=== PATIENT | male | born 1940 | race Caucasian/White ===

== ENCOUNTER 2020-01-09 11:39 | Day surgery (SDC) | payer MEDICARE, OTHER ==
[2020-01-08 08:54] VITALS: BMI 25.8
[~2020-01-09 11:39] MED LIST: ALBUTEROL NEB (CONC) 2.5 MG/0.5 ML INHALATION ONE; ATROPINE SULFATE 0.4 MG/ML 1 ML VIAL IM ONE; LACTATED RINGERS 1,000 ML IV SCH; LIDOCAINE 2% (PF) 20 MG/ML 5 ML VIAL INHALATION ONE; LIDOCAINE VISCOUS 300 MG/15 ML CUP MUCOUS MEM ONE; SODIUM CHLORIDE 0.9% 1,000 ML IV SCH
[2020-01-09 12:15] VITALS: RESP 16; TEMP 97.4
[2020-01-09] MEDS ORDERED: ATROPINE SULFATE 0.4 MG/ML 1 ML VIAL ONE (12:16)
[2020-01-09 12:46] LABS: Glucose,Whole Blood 115 mg/dL (75-99)
[2020-01-09] MEDS ORDERED: LIDOCAINE 2% INJ 20 MG/ML INTRATRACH ONE (13:12)
[2020-01-09] MEDS ORDERED: LIDOCAINE 1% INJ 10MG/ML (20 ML MDV) ONE (13:14)
[2020-01-09] MEDS ORDERED: PROPOFOL 10 MG/ML 20 ML VIAL IV ONE (13:14)
[2020-01-09 14:06] VITALS: BP 131/59; PULSE 89
[2020-01-09 18:50] LABS: Appearance,BF Cloudy; Color,BF Pink
[2020-01-09 18:51] LABS: Nucleated Cells, Body Fluid 955 /uL; RBC, Body Fluid 7825 /uL
[2020-01-09 19:56] LABS: Mononuclear WBC,Body Fluid 2 %; Polynuclear WBC,Body Fluid 98 %
--- NOTE | 2020-01-10 04:53 | PCN ---
PROCEDURE NOTE PROCEDURE: Bronchoscopy, airway examination, therapeutic lavage, BAL right middle lobe. PREOPERATIVE DIAGNOSIS: Prior history of lung cancer, retained secretions. POSTOPERATIVE DIAGNOSIS: Prior history of lung cancer, retrained secretions. [employer]ANT provided general anesthesia. The patient's procedure was done in room #1. There was informed consent and universal timeout. The patient did give consent. OPERATORS: Dr. Conti, Dr. Al and Angella Schneider. DESCRIPTION OF PROCEDURE: After the patient was adequately sedated and being fully monitored, the bronchoscope was inserted through the right nostril. It passed through the right nasopharynx into the oropharynx. The hypopharynx was identified and topicalized. The hypopharyngeal structures, including the anterior commissure, true cords, false cords, arytenoids, piriform sinuses, right and left vallecula, epiglottis, all appeared normal. After topicalization, the bronchoscope was pushed through the glottic opening into the trachea. The trachea appeared relatively normal. There were thick secretions noted in the distal trachea. The tracheal pepito was sharp. The left lung was evaluated first. The left upper lobe and its 2 segments, the lingula and its 2 segments and the left lower lobe and its 4 segments were all found to be normal. There were thick secretions noted throughout. The secretions were suctioned with some difficulty. Saline was used to suction those secretions. There was no dominant mass or tumor. On the right side, there was previous right upper lobectomy. The right upper lobe was gone. The right middle lobe had 2 segments and was normal. The right lower lobe had 5 segments and was also normal. There was nothing that looked like cancer. There were thick secretions noted on that side as well. They were suctioned with some difficulty. The bronchoscope was then wedged into the right middle lobe. The BAL took place, 40 mL was recovered. The patient tolerated the procedure well. There was no immediate complication. Of note, throughout the airway, the bronchial mucosa was erythematous and hyperemic. There was no dominant mass or tumor. There was some vascular engorgement. There was some mucosal friability. The patient tolerated the procedure well. The bronchoscope was withdrawn and the patient will be recovered. The specimens will be sent to the laboratory for analysis. MMODL / IJN: [id number] /
== END 2020-01-09 14:30 | disposition home or self-care (01) ==
LOC: ORWHC2ENDO 11:39
PROVIDERS: ATTEND Internal Medicine Critical Care Medicine
DX: R09.3 Abnormal sputum (principal); R89.7 Abnormal histological findings in specimens from other organs, systems and tissues; J43.9 Emphysema, unspecified; Z85.118 Personal history of other malignant neoplasm of bronchus and lung; I48.19 Other persistent atrial fibrillation; I48.91 Unspecified atrial fibrillation; E78.5 Hyperlipidemia, unspecified; K21.9 Gastro-esophageal reflux disease without esophagitis; L98.499 Non-pressure chronic ulcer of skin of other sites with unspecified severity; Z90.2 Acquired absence of lung [part of]; Z79.899 Other long term (current) drug therapy; Z79.51 Long term (current) use of inhaled steroids; Z79.01 Long term (current) use of anticoagulants; Z79.52 Long term (current) use of systemic steroids; Z86.73 Personal history of transient ischemic attack (TIA), and cerebral infarction without residual deficits; Z87.891 Personal history of nicotine dependence; Z98.890 Other specified postprocedural states; Z90.89 Acquired absence of other organs; Z92.21 Personal history of antineoplastic chemotherapy; Z92.3 Personal history of irradiation; Z97.2 Presence of dental prosthetic device (complete) (partial)
CPT/HCPCS: 88108; 88305; 89050; 87252; 87070; 87205; 87075; 87116; 87102; 87206; 31624; J2001 ×2; J0461; J2704; 87077; 87186

== ENCOUNTER → 2020-02-20 | Day surgery (SDC) | payer MEDICARE, OTHER ==
[2020-02-18 09:23] VITALS: BMI 25.8
[~2020-02-20] MED LIST changes: +LIDOCAINE 1% INJ 10MG/ML (20 ML MDV) ONE; +MIDAZOLAM 2 MG/2 ML VIAL ONE; +PROPOFOL 10 MG/ML 20 ML VIAL IV ONE
[2020-02-20 12:14] VITALS: TEMP 97.1
[2020-02-20 13:40] VITALS: RESP 18
[2020-02-20 14:10] VITALS: BP 135/79; PULSE 77
[2020-02-20 20:56] LABS: Appearance,BF Hazy; Nucleated Cells, Body Fluid 225 /uL; RBC, Body Fluid 15 /uL
[2020-02-20 21:02] LABS: Mononuclear WBC,Body Fluid 17 %; Polynuclear WBC,Body Fluid 83 %; Total Cells Counted,Body Fluid 100
--- NOTE | 2020-02-21 05:37 | PCN ---
PROCEDURE NOTE PROCEDURE: Bronchoscopy, airway examination, therapeutic lavage, BAL. PREOPERATIVE DIAGNOSIS: Retained secretions and bronchitis. POSTOPERATIVE DIAGNOSIS: Retained secretions and bronchitis. OPERATORS: Dr. Conti and Angella Schneider. DESCRIPTION OF PROCEDURE: The patient's procedure took place in room #2. There was informed consent and universal timeout. The operators were Dr. Conti and Angella Schneider. The nurse translator was Taylor Siegel. She provided general anesthesia. After the patient was adequately sedated and being fully monitored, the bronchoscope was inserted through the right nostril. It passed through the right nasopharynx into the oropharynx. The hypopharynx was identified and topicalized. The hypopharyngeal structures were normal including anterior commissure, true cords, false cords, arytenoids, piriform sinuses, right and left vallecula. After topicalization, the bronchoscope was pushed through the glottic opening into the trachea. The trachea appeared normal. There were secretions noted in the distal trachea. They were thick and purulent looking. The tracheal pepito was sharp. On the left side, the left upper lobe proper and its 2 segments, the lingula and its 2 segments and left lower lobe and its 4 segments all appeared relatively normal. The mucosa was very erythematous and hyperemic. There were thick secretions noted throughout. They were difficult to suction. Saline was used to aid in the suction of these secretions. There was no dominant mass or tumor. There was some mucosal friability. On the right side, the right upper lobe was missing from previous lobectomy. The right middle lobe and its 2 segments in the right lower lobe and 5 segments all were normal save for the diffuse bronchial erythema, hyperemia and mucosal friability. Again, there were thick secretions noted throughout. There was no dominant mass. The anatomy of the middle lobe and the right lower lobe was distorted because of the previous right upper lobectomy and everything rotated counterclockwise 90 degrees. Again, no dominant mass or tumor. Secretions were suctioned. The bronchoscope was wedged into the right middle lobe. The BAL took place. The patient tolerated the procedure well. There was no immediate complication. Thirty mL of purulent material was removed from the right middle lobe and we sent to the laboratory for analysis. MMODL / IJN: [id number] /
== END | disposition home or self-care (01) ==
LOC: ORWHC2ENDO 11:42
PROVIDERS: ATTEND Internal Medicine Critical Care Medicine
DX: J40 Bronchitis, not specified as acute or chronic (principal); I48.91 Unspecified atrial fibrillation; Z86.73 Personal history of transient ischemic attack (TIA), and cerebral infarction without residual deficits; E78.5 Hyperlipidemia, unspecified; Z85.118 Personal history of other malignant neoplasm of bronchus and lung; Z87.891 Personal history of nicotine dependence; Z98.890 Other specified postprocedural states; Z90.2 Acquired absence of lung [part of]; Z92.21 Personal history of antineoplastic chemotherapy; Z79.01 Long term (current) use of anticoagulants; Z79.51 Long term (current) use of inhaled steroids; Z79.52 Long term (current) use of systemic steroids; Z79.899 Other long term (current) drug therapy
CPT/HCPCS: 87798 ×3; 87496; 87498; 87529; 88108; 88305; 89050; 87252; 87502; 87634; 87070; 87205; 87116; 87102; 87077; 87186; 87206; 31624; J2250; J0461; J2001; J2704

== ENCOUNTER 2020-03-28 10:42 | Inpatient (IN) | payer MEDICARE, OTHER ==
--- NOTE | 2020-03-28 11:58 | ED ---
SOB HPI - General Chief Complaint: Shortness of Breath Stated Complaint: SOB Time Seen by Provider: 03/28/20 10:42 Source: patient, RN/MD, EMS, RN notes reviewed, old records reviewed Mode of arrival: EMS Limitations: no limitations - History of Present Illness Initial Comments: This is a 72-year-old male history of COPD history of lung cancer who was seen at [facility] and evaluated for shortness of breath. He was found have a pneumonia in addition that he also was found have melenic stools heme positive with evidence of GI bleed. He was transferred here for further care. He states she's actually feeling somewhat better than he did earlier. He was given community acquired pneumonia medications. He was apparently negative. Hemoglobin was 8.1 down from 10.8 on February 25. MD Complaint: shortness of breath, cough - Related Data Home Medications Medication Instructions Recorded Confirmed ALPRAZolam [Xanax] 0.25 mg PO HS PRN 01/08/20 02/20/20 Albuterol Nebulized [Ventolin 2.5 mg INHALATION Q4H 01/08/20 02/20/20 Nebulized] Apixaban [Eliquis] 2.5 mg PO BID 01/08/20 02/20/20 Atorvastatin [Lipitor] 40 mg PO HS 01/08/20 02/20/20 Cyanocobalamin (Vitamin B-12) 2,500 mcg PO DAILY 01/08/20 02/20/20 [Vitamin B-12] Ferrous Sulfate [Feosol] 325 mg PO DAILY 01/08/20 02/20/20 Fluticasone/Vilanterol [Breo 1 inhalation INHALATION DAILY 01/08/20 02/20/20 Ellipta 200-25 Mcg INH] Ipratropium Nebulized [Atrovent 0.5 mg INHALATION Q6HR 01/08/20 02/20/20 Nebulized 0.2 MG/ML] Pantoprazole Sodium 40 mg PO DAILY 01/08/20 02/20/20 Sotalol [Betapace] 120 mg PO BID 01/08/20 02/20/20 Venlafaxine HCl [Effexor XR] 150 mg PO DAILY 01/08/20 02/20/20 Vit D3 With Aloe 1 cap PO DAILY 01/08/20 02/20/20 guaiFENesin-DM 600/30MG [Mucinex 1 each PO Q12HR 01/08/20 02/20/20 Dm] predniSONE 10 mg PO DAILY 01/08/20 02/20/20 Sulfamethoxazole/Trimethoprim 1 each PO Q12H 02/18/20 02/20/20 [Sulfamethoxazole-Tmp Ds Tablet] Allergies Allergy/AdvReac Type Severity Reaction Status Date / Time No Known Allergies Allergy Verified 02/18/20 09:23 Review of Systems ROS Statement: Those systems with pertinent positive or pertinent negative responses have been documented in the HPI. ROS Other: All systems not noted in ROS Statement are negative. Past Medical History Past Medical History: Atrial Fibrillation, Cancer, COPD, CVA/TIA, GERD/Reflux, Hyperlipidemia Additional Past Medical History / Comment(s): ANEMIA. 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 O2 2L/NC PRN AT HOME NEEDED. CURRENT LUNG INFECTION ON ANTIBIOTICS History of Any Multi-Drug Resistant Organisms: None Reported Additional Past Surgical History / Comment(s): RT UPPER LOBE LUNG REMOVED. PILONIDAL CYSTECTOMY. BILATERAL CATARACTS REMOVED WITH LENS IMPLANT. EGD. COLONOSOCPY. BRONCHOCOSCOPY Past Anesthesia/Blood Transfusion Reactions: No Reported Reaction Past Psychological History: Anxiety Smoking Status: Former smoker Past Alcohol Use History: None Reported Past Drug Use History: None Reported - Past Family History Father Family Medical History: Myocardial Infarction ([place]) Additional Family Medical History / Comment(s): OF HEART ATTACK AT AGE 42. Mother Family Medical History: Cancer Sister(s) Family Medical History: Cancer General Exam - General Exam Comments Initial Comments: This is a well-developed well-nourished awake alert oriented times 3 male Limitations: no limitations General appearance: alert Head exam: Present: atraumatic, normocephalic, normal inspection Eye exam: Present: normal appearance, PERRL, EOMI. Absent: scleral icterus, conjunctival injection, periorbital swelling ENT exam: Present: normal exam, mucous membranes moist Neck exam: Present: normal inspection. Absent: tenderness, meningismus, lymphadenopathy Respiratory exam: Present: rhonchi, decreased breath sounds. Absent: respiratory distress, wheezes, rales, stridor Cardiovascular Exam: Present: regular rate, normal rhythm, normal heart sounds. Absent: systolic murmur, diastolic murmur, rubs, gallop, clicks GI/Abdominal exam: Present: soft, normal bowel sounds. Absent: distended, tenderness, guarding, rebound, rigid Extremities exam: Present: normal inspection, full ROM, normal capillary refill. Absent: tenderness, pedal edema, joint swelling, calf tenderness Back exam: Present: normal inspection Neurological exam: Present: alert, oriented X3, CN II-XII intact Psychiatric exam: Present: normal affect, normal mood Skin exam: Present: warm, dry, intact, normal color. Absent: rash Course Vital Signs 03/28/20 10:46 Temperature 98.0 F Pulse Rate 103 H Respiratory 20 Rate Blood Pressure 153/84 O2 Sat by Pulse 99 Oximetry Medical Decision Making - Medical Decision Making I did review the materials presented from the sending facility. Which includes x-ray report showing evidence of left lower lobe atelectasis versus infiltrate. I did discuss case with Dr. Diana samuel. Patient will be admitted with GI consult. Also pulmonary consult Disposition Clinical Impression: Left lower lobe pneumonia, COPD exacerbation, Upper GI bleed, Anemia Disposition: ADMITTED IP TO THIS HOSP Condition: Fair Referrals: Reymundo Toledo MD [Primary Care Provider] - 1-2 days
[2020-03-28] MEDS ORDERED: PNEUMONIA PROTOCOL UTILIZED 1 EACH MISC PO PRN (12:15)
[2020-03-28] MEDS ORDERED: AZITHROMYCIN 500 MG in SODIUM CHLORIDE 0.9% 250 ML IVPB STA (12:15)
[2020-03-28] MEDS ORDERED: SODIUM CHLORIDE 0.9% 1,000 ML IV STA (12:23)
[2020-03-28 13:36] LABS: Anisocytosis Slight; HCT 31.3 % (39.0-53.0); HGB 8.9 gm/dL (13.0-17.5); Hypochromasia Marked; MCH 23.9 pg (25.0-35.0); MCHC 28.3 g/dL (31.0-37.0); MCV 84.4 fL (80.0-100.0); Mean Platelet Volume 7.4; Platelet Count 277 k/uL (150-450); RBC 3.71 m/uL (4.30-5.90); RDW 17.2 % (11.5-15.5); WBC 12.3 k/uL (3.8-10.6)
[2020-03-28] MEDS: SODIUM CHLORIDE 0.9% 1,000 ML IV SCH ×2 (14:48→23:53)
[2020-03-28] MEDS ORDERED: IPRATROPIUM-ALBUTEROL 3 ML NEB INHALATION STA (15:23)
[2020-03-28] MEDS ORDERED: ALPRAZolam 0.25 MG TAB PO PRN (20:51)
[2020-03-28] MEDS ORDERED: HYDROcodone/APAP 5-325MG 1 EACH TAB PO PRN (20:51)
[2020-03-28] MEDS ORDERED: HYDROmorphone 0.5 MG/0.5 ML SYRINGE IVP PRN (20:51)
[2020-03-28] MEDS: BUDESONIDE 0.5 MG/2 ML NEBU INHALATION SCH (20:52)
[2020-03-28] MEDS: IPRATROPIUM-ALBUTEROL 3 ML NEB INHALATION SCH (20:52)
--- NOTE | 2020-03-28 20:59 | XR ---
EXAMINATION TYPE: XR chest 1V portable DATE OF EXAM: 03/28/2020 COMPARISON: NONE HISTORY: Chest pain TECHNIQUE: FINDINGS: There are patchy infiltrates and atelectasis at the lung bases. There is no gross heart himanshu lure. There is some bulkiness of the right pulmonary hilum. IMPRESSION: Infiltrates and atelectasis at the lung bases. There is slight prominence of the right pu lmonary hilum that could relate to infiltrate. Comparison with old exam recommended. No heart failure seen.
[2020-03-28] MEDS ORDERED: PANTOPRAZOLE 40 MG/10 ML VIAL IVP SCH (21:00)
[2020-03-28 21:16] LABS: Anisocytosis Slight; Basophils % (A) 0 %; Eosinophils % (A) 0 %; HCT 27.3 % (39.0-53.0); HGB 7.8 gm/dL (13.0-17.5); Hypochromasia Marked; Lymphocytes # (A) 0.4 k/uL (1.0-4.8); Lymphocytes % (A) 4 %; MCH 23.9 pg (25.0-35.0); MCHC 28.5 g/dL (31.0-37.0); MCV 83.6 fL (80.0-100.0); Mean Platelet Volume 7.1; Monocytes # (A) 0.4 k/uL (0-1.0); Monocytes % (A) 4 %; Neutrophils # (A) 9.7 k/uL (1.3-7.7); Neutrophils % (A) 92 %; Platelet Count 207 k/uL (150-450); RBC 3.27 m/uL (4.30-5.90); RDW 17.1 % (11.5-15.5); WBC 10.6 k/uL (3.8-10.6)
--- NOTE | 2020-03-28 21:25 | HP ---
HISTORY AND PHYSICAL DATE OF SERVICE: 03/28/2020 CHIEF COMPLAINT: Cough, pneumonia and as well as GI bleed. HISTORY OF PRESENT ILLNESS: This 80-year-old gentleman with a past medical history of COPD, CVA, TIA, GERD, hyperlipidemia, history of lung cancer, squamous cell and small cell carcinoma, being followed by Dr. Toledo in the outpatient setting, was having difficulty in cough and clearing the sputum for several weeks according to him. Because of the worsening, the patient went to [facility]. Right lower lobe pneumonia was suspected. Patient referred to [facility] and was admitted for further evaluation and treatment. Patient also had some melenic stools also at that time. The patient previously had [address] Conti from the computer records, which showed no evidence of malignancy, but inflammatory cells. The white count is elevated 12.3, hemoglobin is 8.9. There is no history of fever, rigors, chills at this time. PAST MEDICAL HISTORY: History of lung cancer, COPD, CVA, TIA, GERD, hyperlipidemia, history of anemia, history of right upper lobe cancer, anxiety. MEDICATIONS: Home medications are guaifenesin, nebulizers, vitamin B12, vitamin D3, Lipitor, Eliquis, Xanax, prednisone, sotalol, Protonix. Effexor XR, Ellipta. ALLERGIES: None. FAMILY HISTORY: Family history of myocardial infarction in the family. SOCIAL HISTORY: No history of smoking. No history of alcohol per chart. REVIEW OF SYSTEMS: ENT: Diminished vision. Diminished hearing. CARDIOVASCULAR: As mentioned earlier. RESPIRATION as mentioned earlier. GI no nausea or vomiting. no dysuria. NERVOUS SYSTEM: No numbness or weakness. ALLERGY/IMMUNOLOGY: No asthma, hayfever. MUSCULOSKELETAL: As mentioned earlier. HEMATOLOGY/ONCOLOGY: No history of anemia. ENDOCRINE: No history of diabetes or hypothyroidism. CONSTITUTIONAL: As mentioned earlier. DERMATOLOGY: Negative. RHEUMATOLOGY: Negative. PSYCHIATRY: As mentioned earlier. PHYSICAL EXAMINATION: Alert and oriented times three. Pulse is 116, regular. Blood pressure 147/75, respiration 18, temperature 97.6, pulse ox 94% on 3 L. HEENT is conjunctivae normal. Oral mucosa moist. NECK is no jugular venous distention. No carotid bruit. No lymph node enlargement. CARDIOVASCULAR systems: S1, S2 muffled. RESPIRATION: Breath sounds diminished in the bases. Bilateral scattered rhonchi and crackles. Expiratory wheezing also present. ABDOMEN: Soft, nontender. No mass palpable. No ascites. LEGS: No edema. No swelling. NERVOUS SYSTEM: Higher functions as mentioned earlier. Moves all 4 limbs. No focal motor or sensory deficits. LYMPHATICS: No lymph nodes palpable in the neck, axillae or groin. SKIN: No ulcer, no rashes and no bleeding. JOINTS: No active deforming arthropathy. LABS: WBC 12.3, hemoglobin is 8.2. Other labs are pending. ASSESSMENT: 1. Chronic obstructive pulmonary disease acute exacerbation with acute bilateral pneumonia, right more the left with possibly gram-negative pneumonia. 2. Rule out COVID-19 infection and interstitial pneumonia. 3. Increased WBC. 4. Anemia, normocytic. 5. History of atrial fibrillation, chronic. 6. History of cerebrovascular accident, transient ischemic attack. 7. Gastroesophageal reflux disease. 8. Hyperlipidemia. 9. History of lung cancer x2, small cell and squamous cell cancer. 10.Chronic hypoxic respiratory failure on 2 L nasal cannula. 11.History of bilateral cataracts. 12.History of colonoscopy. 13.History of anxiety. 14.Remote history of nicotine dependence. RECOMMENDATIONS AND DISCUSSION: This 80-year-old gentleman who presented with multiple complex medical issues, we will monitor the patient closely, continue the current medications, management and symptomatic treatment. We will initiate broad-spectrum IV antibiotics, bronchodilators. Pulmonary consultation. Covid-19 is also a concern. I would recommend Covid-19 PCR and as well as a baseline inflammatory markers and as well as D-dimer. If the D-dimer is positive, I would recommend a CT angio. Otherwise, a CT scan of the chest without contrast may be performed. We will follow the patient closely. Prognosis guarded because of multiple complex medical issues. Further recommendations to follow. A copy of dictation being forwarded to Dr. Toledo who is the primary physician. MMODL / IJN: [id number] /
[2020-03-28 21:31] LABS: C Reactive Protein 86.5 mg/L (<10.0)
[2020-03-28] MEDS: SOTALOL 120 MG TAB PO SCH (21:37)
[2020-03-28] MEDS: ATORVASTATIN 40 MG TAB PO SCH (21:37)
[2020-03-28] MEDS: APIXABAN 2.5 MG TABLET PO SCH (21:37)
[2020-03-28] MEDS: guaiFENesin-DM 600/30MG 1 EACH TAB.ER.12H PO SCH (21:37)
[2020-03-28] MEDS: PANTOPRAZOLE 40 MG TABLET PO SCH (21:38)
--- NOTE | 2020-03-28 22:43 | CT ---
EXAMINATION TYPE: CT chest wo con DATE OF EXAM: 03/28/2020 COMPARISON: None HISTORY: pneumonia CT DLP: 334.9 mGycm Automated exposure control for dose reduction was used. Images obtained from the thoracic inlet to the diaphragm with no contrast. There is patchy infiltrate and atelectasis at the lung bases. There are calcified granulomata in the lower lobes. There is no pleural effusion. There is no pericardial effusion. Thoracic aorta is athero matous. The ascending aorta measures 4.3 cm. There is coronary artery calcification. There is no medi astinal adenopathy. There are no hilar masses. The bony thorax is intact. There is spurring in the thoracic spine. Sternum is intact. There is no co mpression fracture. IMPRESSION: Patchy infiltrates and atelectasis at the lung bases. This likely relates to pneumonia. Atherosclerot ic vascular disease.
[2020-03-29 07:26] LABS: Anisocytosis Slight; Basophils % (A) 0 %; Eosinophils % (A) 0 %; HCT 27.8 % (39.0-53.0); HGB 7.8 gm/dL (13.0-17.5); Hypochromasia Marked; Lymphocytes # (A) 0.6 k/uL (1.0-4.8); Lymphocytes % (A) 5 %; MCH 23.8 pg (25.0-35.0); MCHC 28.2 g/dL (31.0-37.0); MCV 84.4 fL (80.0-100.0); Mean Platelet Volume 7.2; Monocytes # (A) 0.6 k/uL (0-1.0); Monocytes % (A) 5 %; Neutrophils % (A) 89 %; Platelet Count 259 k/uL (150-450); RBC 3.29 m/uL (4.30-5.90); RDW 17.2 % (11.5-15.5); WBC 12.4 k/uL (3.8-10.6)
--- NOTE | 2020-03-29 07:35 | XR ---
EXAMINATION TYPE: XR chest 1V portable DATE OF EXAM: 03/29/2020 HISTORY: Shortness of breath. COMPARISON: 03/28/2020 TECHNIQUE: Single view of the chest is submitted. FINDINGS: Demonstrated are scattered senescent parenchymal change. Patchy basilar infiltrates persist without significant interval change. The heart is stable. Hilar and mediastinal structures are within normal limits. Degenerative changes are seen of the dorsal spine. IMPRESSION: 1. Patchy basilar infiltrates persist without significant interval change.
[2020-03-29] MEDS: SYMBICORT 160-4.5 MCG INHALER INHALATION SCH ×2 (08:28→21:22)
[2020-03-29] MEDS: IPRATROPIUM-ALBUTEROL 3 ML NEB INHALATION SCH ×4 (08:28→21:22)
[2020-03-29] MEDS: BUDESONIDE 0.5 MG/2 ML NEBU INHALATION SCH (08:36)
[2020-03-29] MEDS ORDERED: predniSONE 10 MG TAB PO SCH (09:00)
[2020-03-29] MEDS: CYANOCOBALAMIN 500 MCG TAB PO SCH (09:02)
[2020-03-29] MEDS: CHOLECALCIFEROL 1,000 UNIT TAB PO SCH (09:02)
[2020-03-29] MEDS: VENLAFAXINE HCL ER 150 MG CAP PO SCH (09:02)
[2020-03-29] MEDS: FERROUS SULFATE 325 MG TAB PO SCH (09:02)
[2020-03-29] MEDS: APIXABAN 2.5 MG TABLET PO SCH (09:02)
[2020-03-29] MEDS: SOTALOL 120 MG TAB PO SCH ×2 (09:02→21:13)
[2020-03-29] MEDS: PANTOPRAZOLE 40 MG TABLET PO SCH ×2 (09:02→21:13)
[2020-03-29] MEDS: guaiFENesin-DM 600/30MG 1 EACH TAB.ER.12H PO SCH ×2 (09:02→21:13)
[2020-03-29 11:48] LABS: Ferritin 19.5 ng/mL (22.0-322.0)
[2020-03-29] MEDS ORDERED: AZITHROMYCIN 500 MG in SODIUM CHLORIDE 0.9% 250 ML IVPB SCH (13:00)
[2020-03-29 13:25] LABS: African American GFR (CKD) 111.6 (60.0-200.0); Anion Gap 6.3 mmol/L (4.00-12.00); BUN/Creat Ratio 23.33 Ratio (12.00-20.00); Calcium 8.7 mg/dL (8.7-10.3); Carbon Dioxide 34.7 mmol/L (21.6-31.8); Non-African American GFR(CKD) 96.3 (60.0-200.0); Potassium 4.6 mmol/L (3.5-5.5)
--- NOTE | 2020-03-29 13:59 | P.CNPUL ---
History of Present Illness Consult date: 03/29/20 Requesting physician: Benita Dempsey Reason for consult: dyspnea, abnormal CXR/CT Chief complaint: Shortness of breath, GI bleed History of present illness: This is a pleasant 80-year-old gentleman who follows with Dr. Toledo as his primary care provider. 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 He follows with Dr. Conti in our office. He is maintained on Breo, albuterol, DuoNeb inhalations. He had recently undergone bronchoscopy with BAL on 02/20/2020 and was found to have Aspergillus, gram-negative bacilli and stenotrophomonas in the broad cultures. He is currently on Bactrim. He was to be seen by infectious disease. He presented to [facility] on 03/27/2020 with complaints of increasing shortness of breath. He was also found to have melenic stools and heme positive with evidence of GI bleed and was transferred here for further care. He is seen today in consultation on the regular medical floor. He is currently resting quite comfortably in bed. Awake and alert in no acute distress. Computed tomography scan of the chest reveals patchy infiltrates and atelectasis at the lung bases secondary to suspected pneumonia. Coronavirus not detected. White count 12.4. Hemoglobin 7.8. Sodium 143. Potassium 4.6. Creatinine 0.6. Pro-calcitonin 0.06. Pro BNP 403. Review of Systems REVIEW OF SYSTEMS: CONSTITUTIONAL: Denies any recent significant weight loss or weight gain. EYES: Denies change in vision. EARS, NOSE, MOUTH, THROAT: Denies headaches, denies sore throat. CARDIOVASCULAR: Denies chest pain, palpitations or syncopal episodes. RESPIRATORY: Positive for shortness of breath, cough, congestion no hemoptysis. GASTROINTESTINAL: Melanotic stool Denies change in appetite, denies abdominal pain GENITOURINARY: Denies hematuria, denies infections. MUSKULOSKELETAL: Denies pain, denies swelling. INTEGUMENTARY: Denies rash, denies eczema. NEUROLOGICAL: Denies recent memory loss, no recent seizure activity. PSYCHIATRIC: Denies anxiety, denies depression. HEMATOLOGIC/LYMPHATIC: Denies anemia, denies enlarged lymph nodes. Past Medical History Past Medical History: Atrial Fibrillation, Cancer, COPD, CVA/TIA, GERD/Reflux, Hyperlipidemia Additional Past Medical History / Comment(s): ANEMIA. 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 O2 2L/NC PRN AT HOME NEEDED. GRINDSTONE History of Any Multi-Drug Resistant Organisms: None Reported Additional Past Surgical History / Comment(s): RT UPPER LOBE LUNG REMOVED. PILONIDAL CYSTECTOMY. BILATERAL CATARACTS REMOVED WITH LENS IMPLANT. EGD. COLONOSOCPY. BRONCHOCOSCOPY Past Anesthesia/Blood Transfusion Reactions: No Reported Reaction Past Psychological History: Anxiety Smoking Status: Former smoker Past Alcohol Use History: None Reported Additional Past Alcohol Use History / Comment(s): QUIT SMOKING in 1997. Past Drug Use History: None Reported - Past Family History Father Family Medical History: Myocardial Infarction ([place]) Additional Family Medical History / Comment(s): OF HEART ATTACK AT AGE 42. Mother Family Medical History: Cancer Sister(s) Family Medical History: Cancer Medications and Allergies Home Medications Medication Instructions Recorded Confirmed Type ALPRAZolam [Xanax] 0.25 mg PO HS PRN 01/08/20 03/28/20 History Apixaban [Eliquis] 2.5 mg PO BID 01/08/20 03/28/20 History Atorvastatin [Lipitor] 40 mg PO HS 01/08/20 03/28/20 History Cyanocobalamin (Vitamin B-12) 2,500 mcg PO DAILY 01/08/20 03/28/20 History [Vitamin B-12] Ferrous Sulfate [Feosol] 325 mg PO DAILY 01/08/20 03/28/20 History Fluticasone/Vilanterol [Breo 1 inhalation INHALATION RT-DAILY 01/08/20 03/28/20 History Ellipta 200-25 Mcg INH] Ipratropium Nebulized [Atrovent 0.5 mg INHALATION RT-Q6H PRN 01/08/20 03/28/20 History Nebulized 0.2 MG/ML] Pantoprazole Sodium 40 mg PO BID 01/08/20 03/28/20 History Venlafaxine HCl [Effexor XR] 150 mg PO DAILY 01/08/20 03/28/20 History guaiFENesin-DM 600/30MG [Mucinex 1 tab PO BID 01/08/20 03/28/20 History Dm] predniSONE 5 mg PO DAILY 01/08/20 03/28/20 History Cholecalciferol [Vitamin D3 (25 1,000 unit PO DAILY 03/28/20 03/28/20 History Mcg = 1000 Iu)] Sotalol HCl [Sotalol AF] 120 mg PO BID 03/28/20 03/28/20 History Allergies Allergy/AdvReac Type Severity Reaction Status Date / Time No Known Allergies Allergy Verified 03/28/20 13:39 Physical Exam Vitals: Vital Signs Temp Pulse Pulse Pulse Resp BP BP 03/29/20 12:03 108 H 03/29/20 12:00 97.6 F 86 16 149/78 03/29/20 11:48 102 H 03/29/20 08:38 110 H 03/29/20 08:28 110 H 03/29/20 04:20 96.9 F L 95 16 141/69 03/28/20 21:10 112 H 03/28/20 20:53 114 H 03/28/20 20:43 97.7 F 116 H 18 132/73 03/28/20 17:32 97.6 F 116 H 18 147/72 03/28/20 16:15 98.1 F 106 H 18 157/96 03/28/20 15:42 109 H 03/28/20 15:37 107 H 03/28/20 14:50 107 H 20 175/90 Pulse Ox 03/29/20 12:03 03/29/20 12:00 95 03/29/20 11:48 03/29/20 08:38 03/29/20 08:28 03/29/20 04:20 100 03/28/20 21:10 03/28/20 20:53 97 03/28/20 20:43 98 03/28/20 17:32 94 L 03/28/20 16:15 98 03/28/20 15:42 03/28/20 15:37 03/28/20 14:50 97 Intake and Output 03/28/20 03/29/20 03/29/20 22:59 06:59 14:59 Intake Total 400 160 220 Balance 400 160 220 Intake: Intake, IV Titration 400 160 Amount Sodium Chloride 0.9% 1, 400 000 ml @ 130 mls/hr IV . Q7H42M [facility] Rx#:[id number] Sodium Chloride 0.9% 1, 160 000 ml @ 20 mls/hr IV . Q24H [facility] Rx#:[id number] Oral 220 Other: Voiding Method Urinal Urinal Weight 85.275 kg GENERAL EXAM: Alert, active, pleasant 80-year-old gentleman, on 2 L nasal cannula, comfortable in no apparent distress. HEAD: Normocephalic. EYES: Normal reaction of pupils, equal size. NOSE: Clear with pink turbinates. THROAT: No erythema or exudates. NECK: No masses, no JVD. CHEST: No chest wall deformity. LUNGS: Equal air entry with basilar crackles, diminished CVS: S1 and S2 normal with no audible murmur, regular rhythm. ABDOMEN: No hepatosplenomegaly, normal bowel sounds, no guarding or rigidity. SPINE: No scoliosis or deformity SKIN: No rashes CENTRAL NERVOUS SYSTEM: No focal deficits, tone is normal in all 4 extremities. EXTREMITIES: There is no peripheral edema. No clubbing, no cyanosis. Peripheral pulses are intact. Results - Laboratory Findings CBC and BMP: 03/29/20 07:04 03/29/20 07:04 PT/INR, D-dimer D-Dimer 0.22 mg/L FEU (<0.60) 03/28/20 20:26 Abnormal lab findings: Abnormal Labs 03/28/20 03/28/20 03/28/20 13:21 20:26 20:50 WBC 12.3 H RBC 3.71 L 3.27 L Hgb 8.9 L 7.8 L Hct 31.3 L 27.3 L MCH 23.9 L 23.9 L MCHC 28.3 L 28.5 L RDW 17.2 H 17.1 H Neutrophils # 9.7 H Lymphocytes # 0.4 L Carbon Dioxide BUN/Creatinine Ratio Glucose Ferritin 19.5 L C-Reactive Protein 86.5 H 03/29/20 03/29/20 07:04 07:04 WBC 12.4 H RBC 3.29 L Hgb 7.8 L Hct 27.8 L MCH 23.8 L MCHC 28.2 L RDW 17.2 H Neutrophils # 11.0 H Lymphocytes # 0.6 L Carbon Dioxide 34.7 H BUN/Creatinine Ratio 23.33 H Glucose 112 H Ferritin C-Reactive Protein - Diagnostic Findings Chest x-ray: image reviewed CT scan - chest: image reviewed Assessment and Plan Assessment: 1 Acute on chronic hypoxic respiratory failure secondary to an acute suspected lower lobe community-acquired pneumonia, CoVID screen negative. 2 Recent bronchoscopy on 02/20/2020 positive for Aspergillus fumigatus, Stenotrophomonas maltophilia, gram-negative bacilli. On Bactrim in the o utpatient setting 3 History of small cell lung cancer with previous chemo/radiation 4 History of squamous cell lung cancer with previous right upper lobectomy 5 Chronic obstructive pulmonary disease, FEV1 value 35% of predicted. 6 History of smoking approximate 45 years at 1-2 packs per day however quit many years ago. 7 Atrial fibrillation, anticoagulated with Eliquis 8 History of previous CVA/TIA 9 History of gastric ulcer 10 Hyperlipidemia 11 Anxiety 12 Melanotic stools with positive Hemoccult Plan: The patient was seen and evaluated by Dr. Alcala Chest x-ray, CAT scans and labs reviewed Continue DuoNeb's, add Symbicort and a prednisone Add Zosyn, ID consult GI consult regarding melanotic stools We will continue to follow and make further recommendations based on his clinic al status I, the cosigning physician, performed a history & physical examination of the patient. Lungs sounds with few scattered rhonchi. Maintaining good O2 saturations in the 90s on 2 L/m per nasal cannula. I discussed the assessment and plan of care with my nurse practitioner, Willa Al. I attest to the above consultation as dictated by her. Time with Patient: Greater than 30
[2020-03-29] MEDS: PIPERACILLIN-TAZOBACTAM 3.375 GM in SODIUM CHLORIDE 0.9% 100 ML IVPB SCH ×2 (17:09→23:36)
--- NOTE | 2020-03-29 20:58 | P.CONS ---
History of Present Illness - Reason for Consult Consult date: 03/29/20 gI bleed Requesting physician: Benita Dempsey - Chief Complaint Shortness of breath - History of Present Illness 80-year-old male with multiple medical comorbidities including hyperlipidemia, COPD, prior tobacco abuse, lung cancer 2 status post prior lobectomy, atrial fi brillation on Eliquis therapy and anxiety who initially presents to the hospital due to worsening shortness of breath. Suspicion was for community-acquired pneumonia, however patient was found to have an acute fall in his hemoglobin from baseline. Currently hemoglobin is stable at 7.8 from 8.4 previously however this is below his baseline as stated. The patient denies any abdominal pain, nausea or vomiting, however he has reported dark-colored stool over the past week. He denies any prior history of peptic ulcer disease nd has not had an upper endoscopy in the past. He does report his colonoscopies are up-to-date. He does report being told of iron deficiency in the pastand is on iron supplements at home. Review of Systems REVIEW OF SYSTEMS: CONSTITUTIONAL: Denies any fevers, chills, weight change but he did report some fatigue. CARDIOVASCULAR: Denies any chest pain, palpitations high or low blood pressures, but the patient did report shortness of breath RESPIRATORY: Denies any hemoptysis or cough. GENITOURINARY: No dysuria or hematuria. MUSCULOSKELETAL: No weakness reported. SKIN: Denies any new rashes or lesions, jaundice or pallor. PSYCHIATRIC: Denies any depression or anxiety. NEUROLOGY: Denies headache, denies any new focal deficits. EARS/NOSE/THROAT: No recent hearing change, congestion, nasal discharge or sore throat. EYES: No pain in eyes, discharge or change in vision. GASTROINTESTINAL: As per HPI. Past Medical History Past Medical History: Atrial Fibrillation, Cancer, COPD, CVA/TIA, GERD/Reflux, Hyperlipidemia Additional Past Medical History / Comment(s): ANEMIA. 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 O2 2L/NC PRN AT HOME NEEDED. ZUNI History of Any Multi-Drug Resistant Organisms: None Reported Additional Past Surgical History / Comment(s): RT UPPER LOBE LUNG REMOVED. PILONIDAL CYSTECTOMY. BILATERAL CATARACTS REMOVED WITH LENS IMPLANT. EGD. COLONOSOCPY. BRONCHOCOSCOPY Past Anesthesia/Blood Transfusion Reactions: No Reported Reaction Past Psychological History: Anxiety Smoking Status: Former smoker Past Alcohol Use History: None Reported Additional Past Alcohol Use History / Comment(s): QUIT SMOKING in 1997. Past Drug Use History: None Reported - Past Family History Father Family Medical History: Myocardial Infarction ([place]) Additional Family Medical History / Comment(s): OF HEART ATTACK AT AGE 42. Mother Family Medical History: Cancer Sister(s) Family Medical History: Cancer Medications and Allergies Home Medications Medication Instructions Recorded Confirmed Type ALPRAZolam [Xanax] 0.25 mg PO HS PRN 01/08/20 03/28/20 History Apixaban [Eliquis] 2.5 mg PO BID 01/08/20 03/28/20 History Atorvastatin [Lipitor] 40 mg PO HS 01/08/20 03/28/20 History Cyanocobalamin (Vitamin B-12) 2,500 mcg PO DAILY 01/08/20 03/28/20 History [Vitamin B-12] Ferrous Sulfate [Feosol] 325 mg PO DAILY 01/08/20 03/28/20 History Fluticasone/Vilanterol [Breo 1 inhalation INHALATION RT-DAILY 01/08/20 03/28/20 History Ellipta 200-25 Mcg INH] Ipratropium Nebulized [Atrovent 0.5 mg INHALATION RT-Q6H PRN 01/08/20 03/28/20 History Nebulized 0.2 MG/ML] Pantoprazole Sodium 40 mg PO BID 01/08/20 03/28/20 History Venlafaxine HCl [Effexor XR] 150 mg PO DAILY 01/08/20 03/28/20 History guaiFENesin-DM 600/30MG [Mucinex 1 tab PO BID 01/08/20 03/28/20 History Dm] predniSONE 5 mg PO DAILY 01/08/20 03/28/20 History Cholecalciferol [Vitamin D3 (25 1,000 unit PO DAILY 03/28/20 03/28/20 History Mcg = 1000 Iu)] Sotalol HCl [Sotalol AF] 120 mg PO BID 03/28/20 03/28/20 History Allergies Allergy/AdvReac Type Severity Reaction Status Date / Time No Known Allergies Allergy Verified 03/28/20 13:39 Physical Exam Vitals: Vital Signs Temp Pulse Pulse Pulse Resp BP BP 03/29/20 11:48 102 H 03/29/20 08:38 110 H 03/29/20 08:28 110 H 03/29/20 04:20 96.9 F L 95 16 141/69 03/28/20 21:10 112 H 03/28/20 20:53 114 H 03/28/20 20:43 97.7 F 116 H 18 132/73 03/28/20 17:32 97.6 F 116 H 18 147/72 03/28/20 16:15 98.1 F 106 H 18 157/96 03/28/20 15:42 109 H 03/28/20 15:37 107 H 03/28/20 14:50 107 H 20 175/90 03/28/20 12:30 111 H 20 126/67 Pulse Ox 03/29/20 11:48 03/29/20 08:38 03/29/20 08:28 03/29/20 04:20 100 03/28/20 21:10 03/28/20 20:53 97 03/28/20 20:43 98 03/28/20 17:32 94 L 03/28/20 16:15 98 03/28/20 15:42 03/28/20 15:37 03/28/20 14:50 97 03/28/20 12:30 97 Intake and Output 03/28/20 03/29/20 03/29/20 22:59 06:59 14:59 Intake Total 400 160 220 Balance 400 160 220 Intake: Intake, IV Titration 400 160 Amount Sodium Chloride 0.9% 1, 400 000 ml @ 130 mls/hr IV . Q7H42M [facility] Rx#:[id number] Sodium Chloride 0.9% 1, 160 000 ml @ 20 mls/hr IV . Q24H [facility] Rx#:[id number] Oral 220 Other: Voiding Method Urinal Urinal Weight 85.275 kg On physical examination, patient appears comfortable in no apparent distress. HEAD: Normocephalic, atraumatic. EYES: No scleral icterus. No conjunctival injection. MOUTH: No lesions, tongue midline. NECK: Trachea midline, no gross abnormalities. CHEST: decreased air entry in all chandler. HEART: S1-S2 appreciated. ABDOMEN: Soft, nontender to palpation. Bowel sounds are positive. No organomegaly. No guarding or rigidity. EXTREMITIES: No pedal edema. SKIN: No rashes, no jaundice. NEUROLOGIC: Alert and oriented x3. No focal deficits. Results CBC & Chem 7: 03/29/20 07:04 03/29/20 07:04 Labs: Abnormal Lab Results - Last 24 Hours (Table) 03/28/20 03/28/20 03/28/20 Range/Units 13:21 20:26 20:50 WBC 12.3 H (3.8-10.6) k/uL RBC 3.71 L 3.27 L (4.30-5.90) m/uL Hgb 8.9 L 7.8 L (13.0-17.5) gm/dL Hct 31.3 L 27.3 L (39.0-53.0) % MCH 23.9 L 23.9 L (25.0-35.0) pg MCHC 28.3 L 28.5 L (31.0-37.0) g/dL RDW 17.2 H 17.1 H (11.5-15.5) % Neutrophils # 9.7 H (1.3-7.7) k/uL Lymphocytes # 0.4 L (1.0-4.8) k/uL Ferritin 19.5 L (22.0-322.0) ng/mL C-Reactive Protein 86.5 H (<10.0) mg/L 03/29/20 Range/Units 07:04 WBC 12.4 H (3.8-10.6) k/uL RBC 3.29 L (4.30-5.90) m/uL Hgb 7.8 L (13.0-17.5) gm/dL Hct 27.8 L (39.0-53.0) % MCH 23.8 L (25.0-35.0) pg MCHC 28.2 L (31.0-37.0) g/dL RDW 17.2 H (11.5-15.5) % Neutrophils # 11.0 H (1.3-7.7) k/uL Lymphocytes # 0.6 L (1.0-4.8) k/uL Ferritin (22.0-322.0) ng/mL C-Reactive Protein (<10.0) mg/L Chest x-ray: report reviewed Assessment and Plan (1) Iron deficiency anemia Narrative/Plan: 80-year-old male with multiple medical comorbidities who presented to the hospital with shortness of breath and is being treated for a community-acquired pneumonia. Patient had reported some dark colored bowel movements. He denies any history of peptic ulcer disease. Denies any NSAID use. No abdominal pain. No prior upper endoscopy. He reports colonoscopies are up-to-date. He is on iron supplementation at home. Unclear etiology, concern is for possible GI bleed with differential including peptic ulcer disease, gastritis, esophagitis, AVM or other etiology. Current Visit: Yes Status: Acute Code(s): D50.9 - IRON DEFICIENCY ANEMIA, UNSPECIFIED SNOMED Code(s): 55502436 (2) Melena Current Visit: Yes Status: Acute Code(s): K92.1 - MELENA SNOMED Code(s): 8295397 Plan: supportive care Okay for diet Nothing by mouth after midnight Pulmonology service following the patient Continue antibiotic therapy Continue to hold anticoagulation therapy Continue Protonix Plan for EGD tomorrow if medically stable iron studies ordered Thank you for allowing us to participate in the care of the patient we will continue to follow
[2020-03-29] MEDS: ATORVASTATIN 40 MG TAB PO SCH (21:13)
[2020-03-29] MEDS: SODIUM CHLORIDE 0.9% 1,000 ML IV SCH (21:15)
--- NOTE | 2020-03-29 22:33 | P.CONS ---
History of Present Illness - Reason for Consult Consult date: 03/29/20 Pneumonia Requesting physician: Barbara Alegria - Chief Complaint Shortness of breath few days - History of Present Illness Patient is a 72-year-old male with a past medical history significant for COPD and lung cancer patient was evaluated at [facility] for increasing shortness of breath patient also noticed to have melanotic stools for the patient has been transferred to [facility] for further management, patient to my evaluation he denies having any fever or any chills, the patient denies having any chest pain he did have minimal shortness of breath on exertion, patient did have a cough which is mildly intensity is mostly dry in nature denies having any choking on the food no nausea no vomiting no abdominal pain no diarrhea, on arrival to the ER the patient was afebrile he did have white count of 12.3 patient did have a normal d-dimer CRP was elevated: Simons PCR was negative, chest x-ray infiltrate and atelectasis at the lung bases s light prominence of the right pulmonary hilum this was followed by CT of the chest which did show specific infiltrate is atelectasis lung bases on the basis of pneumonia patient has been treated with Zosyn and infectious disease was consulted for further management of antibiotic therapy Review of Systems Positive point has been mentioned in the HPI rest of the systems are negative Past Medical History Past Medical History: Atrial Fibrillation, Cancer, COPD, CVA/TIA, GERD/Reflux, Hyperlipidemia Additional Past Medical History / Comment(s): ANEMIA. 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 O2 2L/NC PRN AT HOME NEEDED. YOCHA DEHE History of Any Multi-Drug Resistant Organisms: None Reported Additional Past Surgical History / Comment(s): RT UPPER LOBE LUNG REMOVED. PILONIDAL CYSTECTOMY. BILATERAL CATARACTS REMOVED WITH LENS IMPLANT. EGD. C OLONOSOCPY. BRONCHOCOSCOPY Past Anesthesia/Blood Transfusion Reactions: No Reported Reaction Past Psychological History: Anxiety Smoking Status: Former smoker Past Alcohol Use History: None Reported Additional Past Alcohol Use History / Comment(s): QUIT SMOKING in 1997. Past Drug Use History: None Reported - Past Family History Father Family Medical History: Myocardial Infarction ([place]) Additional Family Medical History / Comment(s): OF HEART ATTACK AT AGE 42. Mother Family Medical History: Cancer Sister(s) Family Medical History: Cancer Medications and Allergies Home Medications Medication Instructions Recorded Confirmed Type ALPRAZolam [Xanax] 0.25 mg PO HS PRN 01/08/20 03/28/20 History Apixaban [Eliquis] 2.5 mg PO BID 01/08/20 03/28/20 History Atorvastatin [Lipitor] 40 mg PO HS 01/08/20 03/28/20 History Cyanocobalamin (Vitamin B-12) 2,500 mcg PO DAILY 01/08/20 03/28/20 History [Vitamin B-12] Ferrous Sulfate [Feosol] 325 mg PO DAILY 01/08/20 03/28/20 History Fluticasone/Vilanterol [Breo 1 inhalation INHALATION RT-DAILY 01/08/20 03/28/20 History Ellipta 200-25 Mcg INH] Ipratropium Nebulized [Atrovent 0.5 mg INHALATION RT-Q6H PRN 01/08/20 03/28/20 History Nebulized 0.2 MG/ML] Pantoprazole Sodium 40 mg PO BID 01/08/20 03/28/20 History Venlafaxine HCl [Effexor XR] 150 mg PO DAILY 01/08/20 03/28/20 History guaiFENesin-DM 600/30MG [Mucinex 1 tab PO BID 01/08/20 03/28/20 History Dm] predniSONE 5 mg PO DAILY 01/08/20 03/28/20 History Cholecalciferol [Vitamin D3 (25 1,000 unit PO DAILY 03/28/20 03/28/20 History Mcg = 1000 Iu)] Sotalol HCl [Sotalol AF] 120 mg PO BID 03/28/20 03/28/20 History Allergies Allergy/AdvReac Type Severity Reaction Status Date / Time No Known Allergies Allergy Verified 03/28/20 13:39 Physical Exam Vitals: Vital Signs Temp Pulse Pulse Resp BP Pulse Ox 03/29/20 21:39 100 03/29/20 21:22 102 H 03/29/20 21:19 97.8 F 94 16 145/75 99 03/29/20 16:53 100 03/29/20 16:34 102 H 03/29/20 12:03 108 H 03/29/20 12:00 97.6 F 86 16 149/78 95 03/29/20 11:48 102 H 03/29/20 08:38 110 H 03/29/20 08:28 110 H 03/29/20 04:20 96.9 F L 95 16 141/69 100 Intake and Output 03/29/20 03/29/20 03/29/20 06:59 14:59 22:59 Intake Total 160 220 Balance 160 220 Intake: Intake, IV Titration 160 Amount Sodium Chloride 0.9% 1, 160 000 ml @ 20 mls/hr IV . Q24H [facility] Rx#:[id number] Oral 220 Other: Voiding Method Urinal Urinal # Voids 4 GENERAL DESCRIPTION: Elderly male lying in bed, no distress. No tachypnea or accessory muscle of respiration use. HEENT: Shows Pallor , no scleral icterus. Oral mucous membrane is dry. No pharyngeal erythema or thrush NECK: Trachea central, no thyromegaly. LUNGS: Unlabored breathing. Decreased breath sounds at the base. No wheeze or crackle. HEART: S1, S2, regular rate and rhythm. No loud murmur ABDOMEN: Soft, no tenderness , guarding or rigidity, no organomegaly EXTREMITIES: No edema of feet. SKIN: No rash, no masses palpable. NEUROLOGICAL: The patient is awake, alert, oriented x2, mood and affect normal. Results CBC & Chem 7: 03/29/20 07:04 03/29/20 07:04 Labs: Abnormal Lab Results - Last 24 Hours (Table) 03/28/20 03/29/20 03/29/20 Range/Units 20:50 07:04 07:04 WBC 12.4 H (3.8-10.6) k/uL RBC 3.29 L (4.30-5.90) m/uL Hgb 7.8 L (13.0-17.5) gm/dL Hct 27.8 L (39.0-53.0) % MCH 23.8 L (25.0-35.0) pg MCHC 28.2 L (31.0-37.0) g/dL RDW 17.2 H (11.5-15.5) % Neutrophils # 11.0 H (1.3-7.7) k/uL Lymphocytes # 0.6 L (1.0-4.8) k/uL Carbon Dioxide 34.7 H (21.6-31.8) mmol/L BUN/Creatinine Ratio 23.33 H (12.00-20.00) Ratio Glucose 112 H (70-110) mg/dL Ferritin 19.5 L (22.0-322.0) ng/mL Microbiology - Last 24 Hours (Table) 03/28/20 13:21 Blood Culture - Preliminary Blood No Growth after 24 hours Assessment and Plan Assessment: 1- patient presenting to the hospital with increasing shortness of breath pat ient also have a cough with the abnormal chest x-ray with evidence of pneumonia question of possible community acquired versus aspiration pneumonia (1) Left lower lobe pneumonia Current Visit: Yes Status: Acute Code(s): J18.9 - PNEUMONIA, UNSPECIFIED ORGANISM SNOMED Code(s): 667409834 Plan: 1-we will try to obtain sputum for Gram stain and culture 2-Zosyn 3.375 g every 8 hours We will follow on clinical condition and cultures to further adjust medication if needed Thank you for this consultation will follow this patient with you Time with Patient: Greater than 30
--- NOTE | 2020-03-30 00:47 | PN ---
PROGRESS NOTE DATE OF SERVICE: 03/29/2020 This 80-year-old gentleman admitted with COPD acute exacerbation and bilateral pneumonia, right more than left, is being closely monitored. The patient is being evaluated for COVID-19 pneumonia. The most recent bronchoscopy showed multiple cultures including Aspergillus and as well as Stenotrophomonas maltophilia and Aspergillus fumigatus also. The chest CT scan which was reviewed personally by me showed significant bilateral interstitial shadows, right more the left, mostly in the basal areas. PAST MEDICAL HISTORY: Reviewed. REVIEW OF SYSTEMS: CARDIOVASCULAR SYSTEM: No angina. RESPIRATORY SYSTEM: As mentioned earlier. GI: As mentioned earlier. : No dysuria. NERVOUS SYSTEM: No numbness or weakness. CURRENT MEDICATIONS: Current medications are reviewed and include: [place], DuoNeb, Xanax, Lipitor, Symbicort, vitamin B12, iron sulfate, Dilaudid, Protonix, Zosyn, Betapace, Effexor. PHYSICAL EXAMINATION: The patient is alert and oriented x3. Pulse is 108, blood pressure 149/78, respirations 16, temperature 97.6, pulse ox 95% on 2 L. HEENT: Conjunctivae normal. NECK: No jugular venous distention. CARDIOVASCULAR: S1, S2 muffled. RESPIRATORY SYSTEM: Breath sounds diminished at the bases. Bilateral scattered rhonchi and crackles. ABDOMEN: Soft, nontender. LEGS: No edema. No swelling. NERVOUS SYSTEM: No focal deficits. LABS: WBC 12.4, hemoglobin 7.8. ASSESSMENT: 1. Chronic obstructive pulmonary disease acute exacerbation with acute bilateral pneumonia with right more than the left with possibly gram-negative pneumonia with possible sepsis and acute hypoxic respiratory failure. 2. Rule out COVID-19 infection interstitial pneumonia. 3. Stenotrophomonas maltophilia and Aspergillus fumigatus on the recent bronchoscopy. 4. Increased WBC. 5. Anemia, normocytic. 6. Chronic hypoxic respiratory failure on home O2. 7. History of atrial fibrillation, chronic. 8. History of cerebrovascular accident, transient ischemic attack. 9. Gastroesophageal reflux disease. 10.Hyperlipidemia. 11.History of lung cancer x2, small cell and squamous cell cancer. 12.History of bilateral cataracts. 13.History of colonoscopy. 14.History of anxiety. 15.Remote history of nicotine dependence. RECOMMENDATIONS AND DISCUSSION: I recommend to continue current medications, continues symptomatic treatment. COVID-19 PCR is pending at this time. Otherwise, continue with broad-spectrum IV antibiotics. Patient is on IV Zosyn currently per Dr. Alcala's recommendations. Otherwise, we will continue to monitor. Guarded prognosis because of multiple complex medical issues and further recommendations to follow. The rapid testing is negative. MMODL / IJN: [id number] /
[2020-03-30 06:17] LABS: HCT 26.8 % (39.0-53.0); HGB 7.9 gm/dL (13.0-17.5); MCH 24.3 pg (25.0-35.0); MCHC 29.4 g/dL (31.0-37.0); MCV 82.4 fL (80.0-100.0); RBC 3.25 m/uL (4.30-5.90)
[2020-03-30 06:18] LABS: Anisocytosis Slight; Basophils % (A) 0 %; Eosinophils % (A) 0 %; Hypochromasia Marked; Lymphocytes # (A) 0.7 k/uL (1.0-4.8); Lymphocytes % (A) 6 %; Mean Platelet Volume 7.4; Monocytes # (A) 0.8 k/uL (0-1.0); Monocytes % (A) 6 %; Neutrophils # (A) 11.2 k/uL (1.3-7.7); Neutrophils % (A) 87 %; Platelet Count 254 k/uL (150-450); Poikilocytosis Slight; RDW 17.1 % (11.5-15.5)
[2020-03-30] MEDS: IPRATROPIUM-ALBUTEROL 3 ML NEB INHALATION SCH ×4 (08:12→20:00)
[2020-03-30] MEDS: SYMBICORT 160-4.5 MCG INHALER INHALATION SCH ×2 (08:12→19:59)
[2020-03-30] MEDS: guaiFENesin-DM 600/30MG 1 EACH TAB.ER.12H PO SCH ×2 (09:32→20:47)
[2020-03-30] MEDS: CYANOCOBALAMIN 500 MCG TAB PO SCH (09:32)
[2020-03-30] MEDS: SOTALOL 120 MG TAB PO SCH ×2 (09:32→20:47)
[2020-03-30] MEDS: FERROUS SULFATE 325 MG TAB PO SCH (09:32)
[2020-03-30] MEDS: VENLAFAXINE HCL ER 150 MG CAP PO SCH (09:32)
[2020-03-30] MEDS: predniSONE 10 MG TAB PO SCH (09:32)
[2020-03-30] MEDS: PIPERACILLIN-TAZOBACTAM 3.375 GM in SODIUM CHLORIDE 0.9% 100 ML IVPB SCH ×2 (09:32→16:12)
[2020-03-30] MEDS: CHOLECALCIFEROL 1,000 UNIT TAB PO SCH (09:32)
[2020-03-30] MEDS: PANTOPRAZOLE 40 MG TABLET PO SCH ×2 (09:32→20:47)
[2020-03-30 10:15] LABS: Ferritin 22.1 ng/mL (22.0-322.0)
[2020-03-30 11:01] LABS: % Iron Saturation 3.42 (15.00-50.00); African American GFR (CKD) 111.6 (60.0-200.0); BUN/Creat Ratio 28.33 Ratio (12.00-20.00); Calcium 8.7 mg/dL (8.7-10.3); Non-African American GFR(CKD) 96.3 (60.0-200.0); Potassium 4.1 mmol/L (3.5-5.5)
[2020-03-30] MEDS ORDERED: PROPOFOL 10 MG/ML 20 ML VIAL IV ONE (12:00)
[2020-03-30] MEDS ORDERED: LIDOCAINE 1% INJ 10MG/ML (20 ML MDV) ONE (12:00)
[2020-03-30] MEDS ORDERED: IV FLUID CONTINUATION 1,000 ML IV ONE ×2 (12:10)
--- NOTE | 2020-03-30 12:33 | CDI ---
Documentation Clarification Form Date: 03/30/2020 12:23:20 PM From: Celi Bennett CCS, CCDS Admit Date: 03/28/2020 12:15:00 PM Patient Name: Kristian Basurto Visit Number: [id number] Discharge Date: ATTENTION: The Clinical Documentation Specialists (CDI) and [facility] Coding Staff appreciate your assistance in clarifying documentation. Please respond to the clarification below the line at the bottom and electronically sign. The CDI & [facility] Coding staff will review the response and follow-up if needed. Please note: Queries are made part of the Legal Health Record. If you have any questions, please contact the author of this message via ITS. Dr. Barbara Alegria: The patient is admitted with pneumonia, possible gram negative with possible Sepsis. Transferred from [facility] with pneumonia & GI bleed. COVID testing done at [facility] on 03/28 is negative. Per the Pulmonary Consult on 03/29, COVID screen is negative. Per the 03/29 Attending Progress Note: COVID-19 PCR is pending at this time. Clinical Indicators: Patient presented to [facility] with SOB & cough. Has known history of COPD & Lung Cancers, also found to have melenic stools with heme positive & evidence of GI bleed. Transferred to [facility] for treatment of pneumonia & GI eval. 03/28 VS: T 98.0, P 103^, R 20 (SOB< cough), BP 153/84, PO 99 3Lnc 03/28 LAB: WBC 12.3^, Hgb 8.9*, Ferritin 19.5*, CRP 86.5^, Lactate Dehydrogenase 417. 03/28 COVID: Negative 03/28 CXR: Infiltrates & atelectasis at lung bases, Prominence of right pulmonary hilum could related to infiltrate. Please clarify the current status of the patients COVID-19 infection in the next progress note and/or discharge summary such as: COVID-19 is ruled out COVID-19 is suspected COVID-19 is ruled in with possible false negative test result Other explanation of clinical findings (please specify): (Last Form Revision: July 2019) COVID-19 is ruled out MTDD
[2020-03-30] MEDS: SODIUM CHLORIDE 0.9% 1,000 ML IV SCH (14:53)
--- NOTE | 2020-03-30 15:36 | P.PN ---
Subjective Progress Note Date: 03/30/20 Principal diagnosis: Acute on chronic hypoxic respiratory failure related to suspected bilateral lower lobe community acquired pneumonia coated ruled out This is a pleasant 80-year-old gentleman who follows with Dr. Toledo as his primary care provider. 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 He follows with Dr. Conti in our office. He is maintained on Breo, albuterol, DuoNeb inhalations. He had recently undergone bronchoscopy with BAL on 02/20/2020 and was found to have Aspergillus, gram-negative bacilli and stenotrophomonas in the broad cultures. He is currently on Bactrim. He was to be seen by infectious disease. He presented to [facility] on 03/27/2020 with complaints of increasing shortness of breath. He was also found to have melenic stools and heme positive with evidence of GI bleed and was transferred here for further care. He is seen today in consultation on the regular medical floor. He is currently resting quite comfortably in bed. Awake and alert in no acute distress. Computed tomography scan of the chest reveals patchy infiltrates and atelectasis at the lung bases secondary to suspected pneumonia. Coronavirus not detected. White count 12.4. Hemoglobin 7.8. Sodium 143. Potassium 4.6. Creatinine 0.6. Pro-calcitonin 0.06. Pro BNP 403. On 03/30/2020 patient seen in follow-up on the general medical surgical floor, patient is awake and alert, oriented 3, in no acute distress, still has loose productive cough, lung sounds positive for diffuse rhonchi throughout, patient at times clears small amounts of whitish colored phlegm, no compressive chest pain, no hemoptysis, he is on 3 L of oxygen pulse ox is 98%, his been afebrile. He has been ruled out for Covid 19 related pneumonia. He is on Zosyn for antibiotic coverage, nebulized bronchodilators, and oral steroids. Objective - Vital Signs Vital signs: Vital Signs Temp 97.6 F 03/30/20 13:00 Pulse 89 03/30/20 13:00 Resp 20 03/30/20 13:00 BP 133/71 03/30/20 13:00 Pulse Ox 98 03/30/20 13:00 Intake & Output 03/29/20 03/30/20 03/30/20 18:59 06:59 18:59 Intake Total 220 80 460 Output Total 65 Balance 220 15 460 Intake: IV 100 Intake, IV Titration 80 Amount Sodium Chloride 0.9% 1, 80 000 ml @ 20 mls/hr IV . Q24H [facility] Rx#:[id number] Oral 220 360 Output: Urine 65 Other: Voiding Method Urinal Urinal # Voids 4 3 2 - Exam GENERAL EXAM: Alert, very pleasant, 80-year-old white male 3 L of oxygen pulse ox 90% comfortable in no apparent distress. HEAD: Normocephalic/atraumatic. EYES: Normal reaction of pupils, equal size. Conjunctiva pink, sclera white. NOSE: Clear with pink turbinates. THROAT: No erythema or exudates. NECK: No masses, no JVD, no thyroid enlargement, no adenopathy. CHEST: No chest wall deformity. Symmetrical expansion. LUNGS: Equal air entry with diffuse rhonchi throughout CVS: Regular rate and rhythm, normal S1 and S2, no gallops, no murmurs, no rubs ABDOMEN: Soft, nontender. No hepatosplenomegaly, normal bowel sounds, no guarding or rigidity. EXTREMITIES: No clubbing, no edema, no cyanosis, 2+ pulses and upper and lower extremities. MUSCULOSKELETAL: Muscle strength and tone normal. SPINE: No scoliosis or deformity SKIN: No rashes CENTRAL NERVOUS SYSTEM: Alert and oriented -3. No focal deficits, tone is normal in all 4 extremities. PSYCHIATRIC: Alert and oriented -3. Appropriate affect. Intact judgment and insight. - Labs CBC & Chem 7: 03/30/20 05:25 03/30/20 05:25 Labs: Abnormal Lab Results - Last 24 Hours (Table) 03/30/20 03/30/20 Range/Units 05:25 05:25 WBC 13.0 H (3.8-10.6) k/uL RBC 3.25 L (4.30-5.90) m/uL Hgb 7.9 L (13.0-17.5) gm/dL Hct 26.8 L (39.0-53.0) % MCH 24.3 L (25.0-35.0) pg MCHC 29.4 L (31.0-37.0) g/dL RDW 17.1 H (11.5-15.5) % Neutrophils # 11.2 H (1.3-7.7) k/uL Lymphocytes # 0.7 L (1.0-4.8) k/uL Carbon Dioxide 37.0 H (21.6-31.8) mmol/L BUN/Creatinine Ratio 28.33 H (12.00-20.00) Ratio Iron 10 L (65-175) ug/dL % Saturation 3.42 L (15.00-50.00) Microbiology - Last 24 Hours (Table) 03/28/20 13:21 Blood Culture - Preliminary Blood No Growth after 48 hours 03/30/20 00:10 Gram Stain - Preliminary Sputum Sputum Culture - Preliminary Assessment and Plan Plan: Assessment: 1 Acute on chronic hypoxic respiratory failure secondary to an acute suspected lower lobe community-acquired pneumonia, CoVID screen negative. 2 Recent bronchoscopy on 02/20/2020 positive for Aspergillus fumigatus, Stenotrophomonas maltophilia, gram-negative bacilli. 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 6 History of smoking approximate 45 years at 1-2 packs per day however quit many years ago. 7 Atrial fibrillation, anticoagulated with Eliquis 8 History of previous CVA/TIA 9 History of gastric ulcer 10 Hyperlipidemia 11 Anxiety 12 Melanotic stools with positive Hemoccult Plan: Continue current medical treatment, empiric antibiotics, steroids and b ronchodilators, patient is feeling better, although still quite congested. Sinus sputum for culture, ID service is following, vitals have been stable, patient has been afebrile. Follow-up chest x-ray in the morning I performed a history & physical examination of the patient and discussed their management with my nurse practitioner, Angella Schneider. I reviewed the nurse practitioner's note and agree with the documented findings and plan of care. Lung sounds are positive for diminished breath sounds, with diffuse rhonchi The findings and the impression was discussed with the patient. I attest to the documentation by the nurse practitioner. Time with Patient: Less than 30
--- NOTE | 2020-03-30 17:09 | PN ---
PROGRESS NOTE DATE OF SERVICE: 03/30/2020 This is a 80-year-old gentleman, admitted with COPD acute exacerbation, also had bilateral pneumonia, left more than the right. The patient is being closely monitored at this time. The patient is undergoing endoscopy for GI bleed, anemia and melenic stools at this time. Gastroenterology following the patient. Multiple consultants following the patient. Speech Pathology is following consultation, barium swallow was also recommended. PAST MEDICAL HISTORY: Reviewed. REVIEW OF SYSTEMS: CARDIOVASCULAR: No angina. RESPIRATORY: No cough. GI; No nausea. : No dysuria. NERVOUS SYSTEM: No numbness or weakness. CURRENT MEDICATIONS: Reviewed and include: 1. [place] 5 mg q.6 p.r.n. 2. DuoNeb q.i.d. and p.r.n. 3. Xanax. 4. Lipitor. 5. Symbicort. 6. Iron sulfate. 7. Mucinex. 8. Protonix. 9. Zosyn. PHYSICAL EXAM: Patient is alert, oriented x2. Pulse 89, blood pressure 130/70, respiration 20, temperature 97.6, pulse ox 98% on 3 L. HEENT: Conjunctivae normal. NECK: No jugular venous distension. CARDIOVASCULAR SYSTEM: S1, S2, muffled. RESPIRATION: Breath sounds diminished at the bases, a few scattered rhonchi, no crackles. ABDOMEN: Soft, nontender. LEGS: No edema, no cyanosis. NERVOUS SYSTEM: Diffusely weak. LABS: WBC is 13, hemoglobin is 7.9, sodium 140, potassium 4.1. ASSESSMENT: 1. Chronic obstructive pulmonary disease acute exacerbation with acute bilateral pneumonia, right more than the left, with possibly gram-negative pneumonia with possible sepsis and acute hypoxic respiratory failure. 2. COVID-19 ruled out. 3. Stenotrophomonas maltophilia Aspergillus fumigatus in the recent bronchoscopy. 4. Melena and GI bleed for evaluation. 5. Increased WBC. 6. Anemia, normocytic. 7. Chronic hypoxic respiratory failure on home O2. 8. History atrial fibrillation, chronic. 9. History of cerebrovascular accident, transient ischemic attack. 10.Gastroesophageal reflux disease. 11.Hyperlipidemia. 12.History of lung cancer x2, small cell and squamous cell cancer. 13.History of bilateral cataracts. 14.History of colonoscopy. 15.History of anxiety. 16.Remote history of nicotine dependence. RECOMMENDATION: Recommend to continue current medications, symptomatic treatment. Otherwise at this time I would recommend repeat hemoglobin and continue the antibiotics, swallow evaluation, endoscopes. Guarded prognosis because of multiple complex medical issues. Further recommendations to follow. Tapering dose of steroids. Continue Protonix. MMODL / IJN: [id number] / MTDD
[2020-03-30] MEDS: ATORVASTATIN 40 MG TAB PO SCH (20:47)
[2020-03-30] MEDS: ALPRAZolam 0.25 MG TAB PO PRN (22:23)
[2020-03-31] MEDS: PIPERACILLIN-TAZOBACTAM 3.375 GM in SODIUM CHLORIDE 0.9% 100 ML IVPB SCH ×3 (00:59→16:52)
--- NOTE | 2020-03-31 05:09 | PN ---
PROGRESS NOTE DATE OF SERVICE: 03/30/2020 REASON FOR FOLLOWUP: Pneumonia, possible aspiration. INTERVAL HISTORY: The patient is currently afebrile. The patient is breathing more comfortably. The patient did have some cough, not bringing up any sputum. No nausea, no vomiting. No abdominal pain, no diarrhea. PHYSICAL EXAMINATION: Blood pressure 133/71 with a pulse of 89, temperature is 97.6. He is 98% on 3 L nasal cannula. General description is an elderly male lying in bed in no distress. RESPIRATORY SYSTEM: Unlabored breathing, decreased breath sounds at the bases. No wheeze. HEART: S1, S2. Regular rate and rhythm. ABDOMEN: Soft, no tenderness. LABS: Hemoglobin 7.9, white count 13 with BUN of 17, creatinine 0.6. Blood and sputum culture so far pending. DIAGNOSTIC IMPRESSION AND PLAN: Patient admitted to the hospital with shortness of breath and cough with concern for pneumonia. Patient is currently covered with Zosyn to continue while waiting for the sputum culture to finalize. Continue with supportive care. MMODL / IJN: [id number] /
[2020-03-31 05:22] LABS: Anisocytosis Slight; Basophils % (A) 0 %; Eosinophils % (A) 0 %; HCT 26.2 % (39.0-53.0); HGB 7.3 gm/dL (13.0-17.5); Hypochromasia Marked; Lymphocytes # (A) 0.8 k/uL (1.0-4.8); Lymphocytes % (A) 9 %; MCH 22.9 pg (25.0-35.0); MCHC 27.8 g/dL (31.0-37.0); MCV 82.1 fL (80.0-100.0); Mean Platelet Volume 7.1; Monocytes # (A) 0.5 k/uL (0-1.0); Monocytes % (A) 6 %; Neutrophils # (A) 7.1 k/uL (1.3-7.7); Neutrophils % (A) 83 %; Platelet Count 264 k/uL (150-450); Poikilocytosis Slight; RBC 3.19 m/uL (4.30-5.90); RDW 16.9 % (11.5-15.5); WBC 8.5 k/uL (3.8-10.6)
[2020-03-31] MEDS: SYMBICORT 160-4.5 MCG INHALER INHALATION SCH ×2 (07:20→19:49)
[2020-03-31] MEDS: IPRATROPIUM-ALBUTEROL 3 ML NEB INHALATION SCH ×4 (07:20→19:49)
[2020-03-31 09:34] LABS: African American GFR (CKD) 104.8 (60.0-200.0); Anion Gap 4.4 mmol/L (4.00-12.00); BUN/Creat Ratio 25.71 Ratio (12.00-20.00); Calcium 8.5 mg/dL (8.7-10.3); Carbon Dioxide 36.6 mmol/L (21.6-31.8); Non-African American GFR(CKD) 90.4 (60.0-200.0); Potassium 4.5 mmol/L (3.5-5.5)
[2020-03-31] MEDS: CYANOCOBALAMIN 500 MCG TAB PO SCH (09:54)
[2020-03-31] MEDS: PANTOPRAZOLE 40 MG TABLET PO SCH ×2 (09:54→20:18)
[2020-03-31] MEDS: FERROUS SULFATE 325 MG TAB PO SCH (09:55)
[2020-03-31] MEDS: CHOLECALCIFEROL 1,000 UNIT TAB PO SCH (09:55)
[2020-03-31] MEDS: SOTALOL 120 MG TAB PO SCH ×2 (09:56→20:18)
[2020-03-31] MEDS: VENLAFAXINE HCL ER 150 MG CAP PO SCH (09:56)
[2020-03-31] MEDS: guaiFENesin-DM 600/30MG 1 EACH TAB.ER.12H PO SCH ×2 (09:56→20:18)
[2020-03-31] MEDS: predniSONE 10 MG TAB PO SCH (10:11)
--- NOTE | 2020-03-31 11:20 | P.PCN ---
Date of Procedure: 03/30/20 Description of Procedure: BRIEF HISTORY: 80-year-old male with multiple medical comorbidities including hyperlipidemia, COPD, prior tobacco abuse, lung cancer 2 status post prior lobectomy, atrial fibrillation on Eliquis therapy and anxiety who initially presents to the hospital due to worsening shortness of breath. Suspicion was for community- acquired pneumonia, however patient was found to have an acute fall in his hemoglobin from baseline. Currently hemoglobin is stable at 7.8 from 8.4 previously however this is below his baseline as stated. The patient denies any abdominal pain, nausea or vomiting, however he has reported dark-colored stool over the past week. He denies any prior history of peptic ulcer disease nd has not had an upper endoscopy in the past. He does report his colonoscopies are up-to-date. He does report being told of iron deficiency in the pastand is on iron supplements at home. PROCEDURE PERFORMED: Esophagogastroduodenoscopy with biopsy. PREOPERATIVE DIAGNOSIS: Iron deficiency anemia. ESTIMATED BLOOD LOSS: Minimal. IV sedation per anesthesia. PROCEDURE: After informed consent was obtained, the patient was brought into the endoscopy unit. IV sedation was administered by Anesthesia under continuous monitoring. Initially the Olympus GIF-190 video endoscope was inserted into the mouth. Esophagus intubated without any difficulty. It was gradually advanced into the stomach and duodenum and carefully examined. The bulb and the second part of the duodenum appeared normal, with biopsies taken to rule out celiac sprue. The scope at this time was withdrawn to the stomach, adequately insufflated with air, and upon careful examination, mucosa of the antrum, body, cardia and the fundus appeared normal, with biopsies taken of the antrum and body in the areas of mild punctate erythema suggestive of mild gastritis. The scope was then withdrawn into the esophagus. The GE junction was located at 39 cm from the incisors. The esophagus appeared normal. There were no erosions or ulcerations seen and the patient tolerated the procedure well. IMPRESSION: 1. No active bleeding, old blood or pathology to explain anemia. 2. Mild gastritis. 3. Biopsies of the duodenum and antrum and body. RECOMMENDATIONS: The findings of this examination were discussed with the patient. Okay to resume diet. Await pathology from biopsies. Okay to resume anticoagulation therapy. Continue to monitor for signs or symptoms of GI bleeding. Continue to treat pneumonia per primary team. Consider IV iron therapy in the setting of iron deficiency anemia.
--- NOTE | 2020-03-31 13:11 | P.PN ---
Subjective Progress Note Date: 03/31/20 Principal diagnosis: Iron deficiency anemia Patient was seen and examined lying in bed. He is tolerating a regular diet. He denies any signs or symptoms of any GI bleeds. States he had a normal brown bowel movement yesterday. Denies any abdominal pain, nausea, or vomiting. Scheduled for a barium swallow today. And underwent a upper endoscopy yesterday findings that included no active bleeding, old blood or pathology to explain anemia. There is mild gastritis and biopsy of the duodenum and antrum body were taken. Objective - Vital Signs Vital signs: Vital Signs Temp 98.0 F 03/31/20 05:00 Pulse 100 03/31/20 11:18 Resp 20 03/31/20 05:00 BP 162/80 03/31/20 05:00 Pulse Ox 96 03/31/20 05:00 Intake & Output 03/30/20 03/31/20 03/31/20 18:59 06:59 18:59 Intake Total 460 700 Balance 460 700 Intake: IV 100 Intake, IV Titration 100 Amount Piperacillin-Tazobactam 3 100 .375 gm In Sodium Chloride 0.9% 100 ml @ 25 mls/hr IVPB Q8HR [facility] Rx# :[id number] Oral 360 600 Other: Voiding Method Urinal # Voids 2 2 # Bowel Movements 1 - Exam General appearance: The patient is alert, oriented, in no acute distress. HET: Head is normocephalic and atraumatic. Conjunctiva pink. Sclera anicteric. Neck: Supple without lymphadenopathy. Abdomen: Soft, nontender, nondistended with bowel sounds. No guarding or rigidity. Extremities: Normal skin color and turgor. No pedal edema Neurological: No focal deficits. Alert and oriented 3. - Labs CBC & Chem 7: 03/31/20 04:42 03/31/20 04:42 Labs: Abnormal Lab Results - Last 24 Hours (Table) 03/31/20 03/31/20 Range/Units 04:42 04:42 RBC 3.19 L (4.30-5.90) m/uL Hgb 7.3 L (13.0-17.5) gm/dL Hct 26.2 L (39.0-53.0) % MCH 22.9 L (25.0-35.0) pg MCHC 27.8 L (31.0-37.0) g/dL RDW 16.9 H (11.5-15.5) % Lymphocytes # 0.8 L (1.0-4.8) k/uL Carbon Dioxide 36.6 H (21.6-31.8) mmol/L BUN/Creatinine Ratio 25.71 H (12.00-20.00) Ratio Calcium 8.5 L (8.7-10.3) mg/dL Microbiology - Last 24 Hours (Table) 03/30/20 00:10 Gram Stain - Preliminary Sputum Sputum Culture - Preliminary Gram Neg Bacilli 03/28/20 13:21 Blood Culture - Preliminary Blood No Growth after 48 hours Assessment and Plan (1) Iron deficiency anemia Narrative/Plan: 80-year-old male with multiple medical comorbidities who presented to the hospital with shortness of breath and is being treated for a community-acquired pneumonia. Patient had reported some dark colored bowel movements. He denies any history of peptic ulcer disease. Denies any NSAID use. No abdominal pain. No prior upper endoscopy. He reports colonoscopies are up-to-date. He is on iron supplementation at home. Unclear etiology, concern is for possible GI bleed with differential including peptic ulcer disease, gastritis, esophagitis, AVM or other etiology. An upper endoscopy was completed yesterday which showed no evidence of any active bleeding or old blood. There is mild gastritis noted. Patient is allowed to resume anticoagulation. Current Visit: Yes Status: Acute Code(s): D50.9 - IRON DEFICIENCY ANEMIA, UNSPECIFIED SNOMED Code(s): 49710637 (2) Melena Current Visit: Yes Status: Acute Code(s): K92.1 - MELENA SNOMED Code(s): 1468182 Plan: supportive care [place] for [facility] Pulmonology service following the patient Continue antibiotic therapy Resume anticoagulation therapy Continue Protonix the patient is status post EGD with no signs of active bleeding iron studies ordered Will initiate IV iron 3 doses Thank you for allowing us to participate in the care of the patient we will continue to follow The impression and plan of care has been dictated as directed. I performed a history and examination of this patient, discussed the same with the dictator. I agree with the dictator's note ,documented as a scribe. Any additional findings or plans will be noted.
--- NOTE | 2020-03-31 14:19 | XR ---
EXAMINATION TYPE: XR chest 1V portable DATE OF EXAM: 03/31/2020 COMPARISON: 03/29/2020 HISTORY: Follow-up pneumonia TECHNIQUE: Single frontal view of the chest is obtained. FINDINGS: Persistent bilateral lower lobe infiltrate and small effusion. Underlying COPD noted. Athe rosclerotic change aorta. No pneumothorax. Arthropathy of the shoulders. No overt failure. Heart size normal. Contrast seen within the stomach. IMPRESSION: Stable bilateral lower lobe infiltrates with pleural effusion. Correlate for COPD.
[2020-03-31] MEDS: SODIUM FERRIC GLUCONAT-SUCROSE 125 MG in SODIUM CHLORIDE 0.9% 100 ML IVPB SCH (14:23)
--- NOTE | 2020-03-31 16:10 | PN ---
PROGRESS NOTE DATE OF SERVICE: 03/31/2020 This is a 74-year-old gentleman who was admitted with COPD acute exacerbation with bilateral pneumonia is being closely monitored at this time. Dr. Rendon performed EGD, showed no active bleeding and mild gastritis. There is no history of fever, rigors. The patient mildly confused. PAST MEDICAL HISTORY: Reviewed. REVIEW OF SYSTEMS: CARDIOVASCULAR SYSTEM: No angina. RESPIRATION: As mentioned earlier. : No dysuria. NERVOUS SYSTEM: No numbness or weakness. CURRENT MEDICATIONS: Reviewed include: 1. [place]. 2. DuoNeb. 3. Xanax. 4. Lipitor. 5. Symbicort. 6. Vitamin B12. 7. Iron sulfate. 8. Mucinex. 9. Protonix. Doses reviewed. PHYSICAL EXAMINATION: Alert and oriented x3. Pulse 80, blood pressure 143/60, respiration 18, temperature 97.2, pulse ox 98% on 4 L. HEENT: Conjunctivae normal. NECK: No jugular venous distension. HEART: S1, S2, muffled. RESPIRATORY SYSTEM: Breath sounds diminished at the bases, a few scattered rhonchi, no crackles. ABDOMEN: Soft, nontender. LEG: No edema, no swelling. NERVOUS SYSTEM: No focal deficits. LABS: WBC is 8.2, hemoglobin 7.3, sodium 141, potassium 4.5. ASSESSMENT: 1. Chronic obstructive pulmonary disease acute exacerbation with acute bilateral pneumonia, right more than the left with possibly gram-negative pneumonia with possible sepsis and acute hypoxic respiratory failure. 2. COVID-19 ruled out. 3. Stenotrophomonas maltophilia and Aspergillus fumigatus from the recent bronchoscopy. 4. Melena and GI bleed for evaluation. 5. Increased WBC. 6. Anemia, normocytic. 7. Chronic hypoxic respiratory failure on home O2. 8. History of atrial fibrillation, chronic. 9. History of CVA, TIA. 10.History of GERD. 11.Hyperlipidemia. 12.History of lung cancer x2 and small-cell and squamous cell cancer. 13.History of bilateral cataracts. 14.History of colonoscopy. 15.History of anxiety. 16.Remote history of nicotine dependence. RECOMMENDATION: Recommend to continue current management. Continue with the bronchodilators, continue the antibiotics. Repeat chest x-ray today and check for the progress. Otherwise PT, OT evaluation, possible ECF rehab. Guarded prognosis, further recommendations to follow. MMODL / IJN: [id number] /
--- NOTE | 2020-03-31 16:41 | FL ---
EXAMINATION TYPE: FL barium swallow w video DATE OF EXAM: 03/31/2020 CLINICAL HISTORY: 80-year-old male presents with pneumonia, assess for aspiration pneumonia. TECHNIQUE: Deglutition study is performed utilizing thin liquid barium, honey and nectar thick liqui d barium, barium thick applesauce, and barium coated cracker. Total fluoroscopy time: 2 minutes 8 seconds. Total images: None. Real-time fluoroscopy support was provided to speech pathology. COMPARISON: None. FINDINGS: Patient is partially dentulous. The oral and pharyngeal phases show satisfactory initiation and propa gation with all modalities tested. Occasional delay in swallow. Normal mastication is seen with solid modalities tested. There is no evidence of penetration or aspiration with any modality tested. Mild intermittent vallecular residual. Focal C5-C6 anterior spurring does not cause any significant impre ssion onto the cervical esophagus. IMPRESSION: No penetration or aspiration. Please refer to speech therapist notes for further details if necessary.
--- NOTE | 2020-03-31 17:28 | P.PN ---
Subjective Progress Note Date: 03/31/20 Principal diagnosis: Acute on chronic hypoxic respiratory failure related to suspected bilateral lower lobe community acquired pneumonia coated ruled out This is a pleasant 80-year-old gentleman who follows with Dr. Toledo as his primary care provider. 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 He follows with Dr. Conti in our office. He is maintained on Breo, albuterol, DuoNeb inhalations. He had recently undergone bronchoscopy with BAL on 02/20/2020 and was found to have Aspergillus, gram-negative bacilli and stenotrophomonas in the broad cultures. He is currently on Bactrim. He was to be seen by infectious disease. He presented to [facility] on 03/[facility]/2020 with complaints of increasing shortness of breath. He was also found to have melenic stools and heme positive with evidence of GI bleed and was transferred here for further care. He is seen today in consultation on the regular medical floor. He is currently resting quite comfortably in bed. Awake and alert in no acute distress. Computed tomography scan of the chest reveals patchy infiltrates and atelectasis at the lung bases secondary to suspected pneumonia. Coronavirus not detected. White count 12.4. Hemoglobin 7.8. Sodium 143. Potassium 4.6. Creatinine 0.6. Pro-calcitonin 0.06. Pro BNP 403. On 03/30/2020 patient seen in follow-up on the general medical surgical floor, patient is awake and alert, oriented 3, in no acute distress, still has loose productive cough, lung sounds positive for diffuse rhonchi throughout, patient at times clears small amounts of whitish colored phlegm, no compressive chest pain, no hemoptysis, he is on 3 L of oxygen pulse ox is 98%, his been afebrile. He has been ruled out for Covid 19 related pneumonia. He is on Zosyn for antibiotic coverage, nebulized bronchodilators, and oral steroids. On 03/31/2020 patient seen in follow-up on general medical oncology floor, he is awake and alert, eating comfortably, he sitting up on antibiotics, he sat 99% on 3 L of oxygen, hemodynamically he is stable, today's chest x-ray shows stable bilateral lower lobe infiltrates with pleural effusion, patient has had no fever or chills, his sputum is showing gram-negative bacilli, follow cultures are pending. He remains on Zosyn for empiric antibody coverage, he is on oral prednisone, and nebulized bronchodilators. He had a swallow evaluation today which showed no penetration or aspiration. Patient had a EGD today, which showed some gastritis, he had a normal brown bowel movement yesterday, today he denies any abdominal pain nausea vomiting, is tolerating regular diet. Objective - Vital Signs Vital signs: Vital Signs Temp 97.9 F 03/31/20 13:00 Pulse 83 03/31/20 16:22 Resp 18 03/31/20 13:00 BP 143/66 03/31/20 13:00 Pulse Ox 99 03/31/20 13:00 Intake & Output 03/30/20 03/31/20 03/31/20 18:59 06:59 18:59 Intake Total 460 700 Balance 460 700 Intake: IV 100 Intake, IV Titration 100 Amount Piperacillin-Tazobactam 3 100 .375 gm In Sodium Chloride 0.9% 100 ml @ 25 mls/hr IVPB Q8HR [facility] Rx# :[id number] Oral 360 600 Other: Voiding Method Urinal Urinal # Voids 2 2 2 # Bowel Movements 1 - Exam GENERAL EXAM: Alert, very pleasant, 80-year-old white male 3 L of oxygen pulse ox 99% comfortable in no apparent distress. HEAD: Normocephalic/atraumatic. EYES: Normal reaction of pupils, equal size. Conjunctiva pink, sclera white. NOSE: Clear with pink turbinates. THROAT: No erythema or exudates. NECK: No masses, no JVD, no thyroid enlargement, no adenopathy. CHEST: No chest wall deformity. Symmetrical expansion. LUNGS: Equal air entry with diffuse rhonchi throughout CVS: Regular rate and rhythm, normal S1 and S2, no gallops, no murmurs, no rubs ABDOMEN: Soft, nontender. No hepatosplenomegaly, normal bowel sounds, no guarding or rigidity. EXTREMITIES: No clubbing, no edema, no cyanosis, 2+ pulses and upper and lower extremities. MUSCULOSKELETAL: Muscle strength and tone normal. SPINE: No scoliosis or deformity SKIN: No rashes CENTRAL NERVOUS SYSTEM: Alert and oriented -3. No focal deficits, tone is normal in all 4 extremities. PSYCHIATRIC: Alert and oriented -3. Appropriate affect. Intact judgment and insight. - Labs CBC & Chem 7: 03/31/20 04:42 03/31/20 04:42 Labs: Abnormal Lab Results - Last 24 Hours (Table) 03/31/20 03/31/20 Range/Units 04:42 04:42 RBC 3.19 L (4.30-5.90) m/uL Hgb 7.3 L (13.0-17.5) gm/dL Hct 26.2 L (39.0-53.0) % MCH 22.9 L (25.0-35.0) pg MCHC 27.8 L (31.0-37.0) g/dL RDW 16.9 H (11.5-15.5) % Lymphocytes # 0.8 L (1.0-4.8) k/uL Carbon Dioxide 36.6 H (21.6-31.8) mmol/L BUN/Creatinine Ratio 25.71 H (12.00-20.00) Ratio Calcium 8.5 L (8.7-10.3) mg/dL Microbiology - Last 24 Hours (Table) 03/28/20 13:21 Blood Culture - Preliminary Blood No Growth after 72 hours 03/30/20 00:10 Gram Stain - Preliminary Sputum Sputum Culture - Preliminary Gram Neg Bacilli Assessment and Plan Plan: Assessment: 1 Acute on chronic hypoxic respiratory failure secondary to an acute suspected lower lobe community-acquired pneumonia, CoVID screen negative. 2 Recent bronchoscopy on 02/20/2020 positive for Aspergillus fumigatus, Stenotrophomonas maltophilia, gram-negative bacilli. 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 6 History of smoking approximate 45 years at 1-2 packs per day however quit many years ago. 7 Atrial fibrillation, anticoagulated with Eliquis 8 History of previous CVA/TIA 9 History of gastric ulcer 10 Hyperlipidemia 11 Anxiety 12 Melanotic stools with positive Hemoccult Plan: Continue current medical treatment, continue antibiotics, leukocytosis has improved, he has had no fever or chills, no worsening dyspnea, sputum culture is positive for gram-negative bacilli, fungal culture is pending. Overall feeling better, no worsening dyspnea no cough, no hemoptysis no chest pain. No signs of active bleeding, underwent his EGD showing some gastritis, he is tolerating regular diet. Hemodynamically has been stable. I performed a history & physical examination of the patient and discussed their management with my nurse practitioner, Angella Schneider. I reviewed the nurse practitioner's note and agree with the documented findings and plan of care. Lung sounds are positive for diminished breath sounds, with diffuse rhonchi The findings and the impression was discussed with the patient. I attest to the documentation by the nurse practitioner. Time with Patient: Less than 30
[2020-03-31] MEDS: ATORVASTATIN 40 MG TAB PO SCH (20:18)
[2020-04-01] MEDS: PIPERACILLIN-TAZOBACTAM 3.375 GM in SODIUM CHLORIDE 0.9% 100 ML IVPB SCH ×4 (00:02→23:53)
--- NOTE | 2020-04-01 04:58 | PN ---
PROGRESS NOTE DATE OF SERVICE: 03/31/2020 REASON FOR FOLLOWUP: Pneumonia possible aspiration. INTERVAL HISTORY: The patient is currently afebrile. Patient is breathing more comfortably. The patient denies having any chest pain. Did have some cough and sputum. No nausea, no vomiting. No abdominal pain or diarrhea. PHYSICAL EXAMINATION: Blood pressure 143/66, pulse of 80, temperature 97.9. He is 99% on 3 L nasal cannula. General description is an elderly male lying in bed in no distress. RESPIRATORY SYSTEM: Unlabored breathing, decreased breath sounds at the bases. No wheeze. HEART: S1, S2. Regular rate and rhythm. ABDOMEN: Soft, no tenderness. LABS: Sputum is showing a Gram-negative. White count normalized. The video esophagram did not show any penetration or aspiration. DIAGNOSTIC IMPRESSION AND PLAN: Patient with gram-negative pneumonia, covered with Zosyn. Will wait for the final ID sensitivity to this pathogen and adjust antibiotic further if needed. Continue supportive care. MMODL / IJN: [id number] /
[2020-04-01] MEDS: SODIUM CHLORIDE 0.9% 1,000 ML IV SCH ×2 (05:12→23:56)
[2020-04-01] MEDS: SYMBICORT 160-4.5 MCG INHALER INHALATION SCH ×2 (07:20→19:32)
[2020-04-01] MEDS: IPRATROPIUM-ALBUTEROL 3 ML NEB INHALATION SCH ×4 (07:20→19:32)
[2020-04-01] MEDS: CHOLECALCIFEROL 1,000 UNIT TAB PO SCH (10:04)
[2020-04-01] MEDS: CYANOCOBALAMIN 500 MCG TAB PO SCH (10:04)
[2020-04-01] MEDS: guaiFENesin-DM 600/30MG 1 EACH TAB.ER.12H PO SCH ×2 (10:05→21:32)
[2020-04-01] MEDS: FERROUS SULFATE 325 MG TAB PO SCH (10:05)
[2020-04-01] MEDS: PANTOPRAZOLE 40 MG TABLET PO SCH ×2 (10:05→21:32)
[2020-04-01] MEDS: predniSONE 10 MG TAB PO SCH (10:05)
[2020-04-01] MEDS: VENLAFAXINE HCL ER 150 MG CAP PO SCH (10:06)
[2020-04-01] MEDS: SOTALOL 120 MG TAB PO SCH ×2 (10:06→21:32)
[2020-04-01] MEDS: SODIUM FERRIC GLUCONAT-SUCROSE 125 MG in SODIUM CHLORIDE 0.9% 100 ML IVPB SCH (12:10)
[2020-04-01 12:37] LABS: Anisocytosis Slight; HCT 28.7 % (39.0-53.0); HGB 8.2 gm/dL (13.0-17.5); Hypochromasia Marked; MCH 23.7 pg (25.0-35.0); MCHC 28.7 g/dL (31.0-37.0); MCV 82.5 fL (80.0-100.0); Mean Platelet Volume 6.6; Platelet Count 301 k/uL (150-450); Poikilocytosis Slight; RBC 3.47 m/uL (4.30-5.90); RDW 17.1 % (11.5-15.5); WBC 10.8 k/uL (3.8-10.6)
--- NOTE | 2020-04-01 14:16 | P.PN ---
Subjective Progress Note Date: 04/01/20 Principal diagnosis: Iron deficiency anemia The patient was seen and examined sitting up in bed. He denies any melena or rectal bleeding. States he did not have a bowel movement today. He denies any abdominal pain, nausea, or vomiting. Iron studies were obtained, he is getting IV iron 3 doses. His hemoglobin improved to 8.2. Objective - Vital Signs Vital signs: Vital Signs Temp 97.4 F L 04/01/20 05:00 Pulse 88 04/01/20 07:33 Resp 20 04/01/20 05:00 BP 160/79 04/01/20 05:00 Pulse Ox 97 04/01/20 05:00 Intake & Output 03/31/20 04/01/20 04/01/20 18:59 06:59 18:59 Intake Total 540 Output Total 450 Balance 90 Intake: Intake, IV Titration 180 Amount Piperacillin-Tazobactam 3 100 .375 gm In Sodium Chloride 0.9% 100 ml @ 25 mls/hr IVPB Q8HR [facility] Rx# :[id number] Sodium Chloride 0.9% 1, 80 000 ml @ 20 mls/hr IV . Q24H [facility] Rx#:[id number] Oral 360 Output: Urine 450 Other: Voiding Method Urinal Urinal Urinal # Voids 2 2 - Exam General appearance: The patient is alert, oriented, in no acute distress. HET: Head is normocephalic and atraumatic. Conjunctiva pink. Sclera anicteric. Neck: Supple without lymphadenopathy. Abdomen: Soft, nontender, nondistended with bowel sounds. No guarding or rigidity. Extremities: Normal skin color and turgor. No pedal edema Neurological: No focal deficits. Alert and oriented 3. - Labs CBC & Chem 7: 04/01/20 11:58 03/31/20 04:42 Labs: Microbiology - Last 24 Hours (Table) 03/28/20 13:21 Blood Culture - Preliminary Blood No Growth after 72 hours 03/30/20 00:10 Gram Stain - Preliminary Sputum Sputum Culture - Preliminary Gram Neg Bacilli Assessment and Plan (1) Iron deficiency anemia Narrative/Plan: 80-year-old male with multiple medical comorbidities who presented to the hospital with shortness of breath and is being treated for a community-acquired pneumonia. Patient had reported some dark colored bowel movements. He denies any history of peptic ulcer disease. Denies any NSAID use. No abdominal pain. No prior upper endoscopy. He reports colonoscopies are up-to-date. He is on iron supplementation at home. Unclear etiology, concern is for possible GI bleed with differential including peptic ulcer disease, gastritis, esophagitis, AVM or other etiology. An upper endoscopy was completed yesterday which showed no evidence of any active bleeding or old blood. There is mild gastritis noted. Patient is allowed to resume anticoagulation. Current Visit: Yes Status: Acute Code(s): D50.9 - IRON DEFICIENCY ANEMIA, UNSPECIFIED SNOMED Code(s): 71542033 (2) Melena Current Visit: Yes Status: Acute Code(s): K92.1 - MELENA SNOMED Code(s): 5550927 Plan: supportive care Okay for diet Pulmonology service following the patient Continue antibiotic therapy Resume anticoagulation therapy Continue Protonix the patient is status post EGD with no signs of active bleeding iron studies ordered Will initiate IV iron 3 doses Thank you for allowing us to participate in the care of the patient we will and off at this time The impression and plan of care has been dictated as directed. I performed a history and examination of this patient, discussed the same with the dictator. I agree with the dictator's note ,documented as a scribe. Any additional findings or plans will be noted.
--- NOTE | 2020-04-01 14:34 | P.PN ---
Subjective Progress Note Date: 04/01/20 Principal diagnosis: Acute on chronic hypoxic respiratory failure related to suspected bilateral lower lobe community acquired pneumonia coated ruled out This is a pleasant 80-year-old gentleman who follows with Dr. Toledo as his primary care provider. 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 He follows with Dr. Conti in our office. He is maintained on Breo, albuterol, DuoNeb inhalations. He had recently undergone bronchoscopy with BAL on 02/20/2020 and was found to have Aspergillus, gram-negative bacilli and stenotrophomonas in the broad cultures. He is currently on Bactrim. He was to be seen by infectious disease. He presented to [facility] on 03/27/2020 with complaints of increasing shortness of breath. He was also found to have melenic stools and heme positive with evidence of GI bleed and was transferred here for further care. He is seen today in consultation on the regular medical floor. He is currently resting quite comfortably in bed. Awake and alert in no acute distress. Computed tomography scan of the chest reveals patchy infiltrates and atelectasis at the lung bases secondary to suspected pneumonia. Coronavirus not detected. White count 12.4. Hemoglobin 7.8. Sodium 143. Potassium 4.6. Creatinine 0.6. Pro-calcitonin 0.06. Pro BNP 403. On 03/30/2020 patient seen in follow-up on the general medical surgical floor, patient is awake and alert, oriented 3, in no acute distress, still has loose productive cough, lung sounds positive for diffuse rhonchi throughout, patient at times clears small amounts of whitish colored phlegm, no compressive chest pain, no hemoptysis, he is on 3 L of oxygen pulse ox is 98%, his been afebrile. He has been ruled out for Covid 19 related pneumonia. He is on Zosyn for antibiotic coverage, nebulized bronchodilators, and oral steroids. On 03/31/2020 patient seen in follow-up on general medical oncology floor, he is awake and alert, eating comfortably, he sitting up on antibiotics, he sat 99% on 3 L of oxygen, hemodynamically he is stable, today's chest x-ray shows stable bilateral lower lobe infiltrates with pleural effusion, patient has had no fever or chills, his sputum is showing gram-negative bacilli, follow cultures are pending. He remains on Zosyn for empiric antibody coverage, he is on oral prednisone, and nebulized bronchodilators. He had a swallow evaluation today which showed no penetration or aspiration. Patient had a EGD today, which showed some gastritis, he had a normal brown bowel movement yesterday, today he denies any abdominal pain nausea vomiting, is tolerating regular diet. On 04/01/2020 patient seen in follow-up on the general medical surgical oncology floor, no acute events overnight, breathing comfortably, no cough, no chest pain, she is on 3 L of oxygen pulse ox of 92%, no fever chills, hemodynamically stable, denies any fever or chills, microbiology results reviewed showing gram- negative bacilli in sputum, final cultures pending. Remains on Zosyn for antibiotic coverage Objective - Vital Signs Vital signs: Vital Signs Temp 97.5 F L 04/01/20 12:58 Pulse 95 04/01/20 12:58 Resp 19 04/01/20 12:58 BP 148/80 04/01/20 12:58 Pulse Ox 92 L 04/01/20 12:58 Intake & Output 03/31/20 04/01/20 04/01/20 18:59 06:59 18:59 Intake Total 540 Output Total 450 Balance 90 Intake: Intake, IV Titration 180 Amount Piperacillin-Tazobactam 3 100 .375 gm In Sodium Chloride 0.9% 100 ml @ 25 mls/hr IVPB Q8HR [facility] Rx# :[id number] Sodium Chloride 0.9% 1, 80 000 ml @ 20 mls/hr IV . Q24H [facility] Rx#:[id number] Oral 360 Output: Urine 450 Other: Voiding Method Urinal Urinal Urinal # Voids 2 2 - Exam GENERAL EXAM: Alert, very pleasant, 80-year-old white male 3 L of oxygen pulse ox 92% comfortable in no apparent distress. HEAD: Normocephalic/atraumatic. EYES: Normal reaction of pupils, equal size. Conjunctiva pink, sclera white. NOSE: Clear with pink turbinates. THROAT: No erythema or exudates. NECK: No masses, no JVD, no thyroid enlargement, no adenopathy. CHEST: No chest wall deformity. Symmetrical expansion. LUNGS: Equal air entry with diffuse rhonchi throughout CVS: Regular rate and rhythm, normal S1 and S2, no gallops, no murmurs, no rubs ABDOMEN: Soft, nontender. No hepatosplenomegaly, normal bowel sounds, no guarding or rigidity. EXTREMITIES: No clubbing, no edema, no cyanosis, 2+ pulses and upper and lower extremities. MUSCULOSKELETAL: Muscle strength and tone normal. SPINE: No scoliosis or deformity SKIN: No rashes CENTRAL NERVOUS SYSTEM: Alert and oriented -3. No focal deficits, tone is nor mal in all 4 extremities. PSYCHIATRIC: Alert and oriented -3. Appropriate affect. Intact judgment and insight. - Labs CBC & Chem 7: 04/01/20 11:58 03/31/20 04:42 Labs: Abnormal Lab Results - Last 24 Hours (Table) 04/01/20 Range/Units 11:58 WBC 10.8 H (3.8-10.6) k/uL RBC 3.47 L (4.30-5.90) m/uL Hgb 8.2 L (13.0-17.5) gm/dL Hct 28.7 L (39.0-53.0) % MCH 23.7 L (25.0-35.0) pg MCHC 28.7 L (31.0-37.0) g/dL RDW 17.1 H (11.5-15.5) % Microbiology - Last 24 Hours (Table) 03/28/20 13:21 Blood Culture - Preliminary Blood No Growth after 72 hours 03/30/20 00:10 Gram Stain - Preliminary Sputum Sputum Culture - Preliminary Gram Neg Bacilli Assessment and Plan Plan: Assessment: 1 Acute on chronic hypoxic respiratory failure secondary to an acute suspected lower lobe community-acquired pneumonia, CoVID screen negative. 2 Recent bronchoscopy on 02/20/2020 positive for Aspergillus fumigatus, St enotrophomonas maltophilia, gram-negative bacilli. 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 6 History of smoking approximate 45 years at 1-2 packs per day however quit many years ago. 7 Atrial fibrillation, anticoagulated with Eliquis 8 History of previous CVA/TIA 9 History of gastric ulcer 10 Hyperlipidemia 11 Anxiety 12 Melanotic stools with positive Hemoccult Plan: Breathing comfortably, vital signs have been stable, denies any same antibiotics, awaiting results of the sputum culture, no fever or chills, continue with the neb was bronchodilators, and oral prednisone. We'll continue to follow I performed a history & physical examination of the patient and discussed their management with my nurse practitioner, Angella Schneider. I reviewed the nurse practitioner's note and agree with the documented findings and plan of care. Lung sounds are positive for diminished breath sounds, with diffuse rhonchi The findings and the impression was discussed with the patient. I attest to the documentation by the nurse practitioner. Time with Patient: Less than 30
--- NOTE | 2020-04-01 17:08 | PN ---
PROGRESS NOTE DATE OF SERVICE: 04/01/2020 This 80-year-old gentleman who was admitted with COPD, acute exacerbation, has bilateral pneumonia, right more than the left, with possibly Gram-negative pneumonia. He is being closely monitored. Patient is on broad-spectrum IV antibiotics. Multiple consultants are following the patient closely. The most recent chest x-ray which was done on 03/31/2020, which was reviewed personally by me, showed significant bilateral lesions which are improving compared to the admission. PHYSICAL EXAMINATION: Alert and oriented x3. Pulse is 77, blood pressure 148/80, respiration 19, temperature 97.4, pulse ox 92% on 3 L. HEENT: Conjunctivae normal. NECK: No jugular venous distention. CARDIOVASCULAR SYSTEM: S1, S2 muffled. RESPIRATORY SYSTEM: Breath sounds diminished at the bases. A few scattered rhonchi. ABDOMEN: Soft. NERVOUS SYSTEM: No focal deficit. LABS: WBC 10.2, hemoglobin is 8.2. ASSESSMENT: 1. Chronic obstructive pulmonary disease, acute exacerbation, with acute bilateral pneumonia, right more than left, with possibly Gram-negative pneumonia with possible sepsis and acute hypoxic respiratory failure. 2. COVID-19 ruled out. 3. Stenotrophomonas maltophilia and Aspergillus fumigatus from the recent bronchoscopy. 4. Melena and gastrointestinal bleed for evaluation. 5. Increased white count. 6. Anemia, normocytic. 7. Chronic hypoxic respiratory failure, on home oxygen. 8. History of atrial fibrillation, chronic. 9. History of cerebrovascular accident, transient ischemic attack. 10.History of gastroesophageal reflux disease. 11.Hyperlipidemia. 12.History of lung cancer x2 and small-cell squamous cell cancer. 13.History of bilateral cataracts. 14.History of colonoscopy. 15.History of anxiety. 16.Remote history of nicotine dependence. RECOMMENDATIONS AND DISCUSSION: I recommend to continue current medications, continue with the monitoring, symptomatic treatment. Otherwise at this time I recommend continuing the antibiotics. The patient passed a video fluoroscopic swallow. The patient would like to like to go home rather than to rehab. Further recommendations to follow. MMODL / IJN: [id number] /
[2020-04-01] MEDS: ATORVASTATIN 40 MG TAB PO SCH (21:32)
--- NOTE | 2020-04-01 22:52 | PN ---
PROGRESS NOTE DATE OF SERVICE: 04/01/2020 REASON FOR FOLLOWUP: Gram-negative pneumonia. INTERVAL HISTORY: The patient is currently afebrile. The patient is breathing more comfortably. The patient denies having any chest pain. He did have a cough, not bringing up any sputum. No nausea, no vomiting, no abdominal pain or diarrhea. PHYSICAL EXAMINATION: Blood pressure 158/83 with a pulse of 94, temperature 97.7. He is 95% on 3 L nasal cannula. General description is an elderly male lying in bed in no distress. RESPIRATORY SYSTEM: Unlabored breathing with decreased breath sounds at the base. No wheeze. HEART: S1, S2. Regular rate and rhythm. ABDOMEN: Soft. No tenderness. LABS: Hemoglobin 8.2, white count 10.8. Sputum is Gram-negative. DIAGNOSTIC IMPRESSION AND PLAN: Patient with Gram-negative pneumonia, for which the patient is currently covered with Zosyn. Will wait for the sensitivity and adjust antibiotic further if needed. Continue with supportive care. MMODL / IJN: [id number] /
[2020-04-02] MEDS: IPRATROPIUM-ALBUTEROL 3 ML NEB INHALATION SCH ×4 (08:08→19:12)
[2020-04-02] MEDS: SYMBICORT 160-4.5 MCG INHALER INHALATION SCH ×2 (08:08→19:13)
[2020-04-02] MEDS: SODIUM FERRIC GLUCONAT-SUCROSE 125 MG in SODIUM CHLORIDE 0.9% 100 ML IVPB SCH (10:11)
[2020-04-02] MEDS: CYANOCOBALAMIN 500 MCG TAB PO SCH (10:15)
[2020-04-02] MEDS: PANTOPRAZOLE 40 MG TABLET PO SCH ×2 (10:15→20:29)
[2020-04-02] MEDS: CHOLECALCIFEROL 1,000 UNIT TAB PO SCH (10:15)
[2020-04-02] MEDS: FERROUS SULFATE 325 MG TAB PO SCH (10:15)
[2020-04-02] MEDS: predniSONE 10 MG TAB PO SCH (10:15)
[2020-04-02] MEDS: VENLAFAXINE HCL ER 150 MG CAP PO SCH (10:16)
[2020-04-02] MEDS: guaiFENesin-DM 600/30MG 1 EACH TAB.ER.12H PO SCH ×2 (10:16→20:29)
[2020-04-02] MEDS: PIPERACILLIN-TAZOBACTAM 3.375 GM in SODIUM CHLORIDE 0.9% 100 ML IVPB SCH ×3 (10:17→23:17)
[2020-04-02] MEDS: SOTALOL 120 MG TAB PO SCH ×2 (10:17→20:29)
[2020-04-02 13:27] VITALS: BMI 24.7
--- NOTE | 2020-04-02 14:48 | P.PN ---
Subjective Progress Note Date: 04/02/20 Principal diagnosis: Acute on chronic hypoxic respiratory failure related to suspected bilateral lower lobe community acquired pneumonia coated ruled out This is a pleasant 80-year-old gentleman who follows with Dr. Toledo as his primary care provider. 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 He follows with Dr. Conti in our office. He is maintained on Breo, albuterol, DuoNeb inhalations. He had recently undergone bronchoscopy with BAL on 02/20/2020 and was found to have Aspergillus, gram-negative bacilli and stenotrophomonas in the broad cultures. He is currently on Bactrim. He was to be seen by infectious disease. He presented to [facility] on 03/27/2020 with complaints of increasing shortness of breath. He was also found to have melenic stools and heme positive with evidence of GI bleed and was transferred here for further care. He is seen today in consultation on the regular medical floor. He is currently resting quite comfortably in bed. Awake and alert in no acute distress. Computed tomography scan of the chest reveals patchy infiltrates and atelectasis at the lung bases secondary to suspected pneumonia. Coronavirus not detected. White count 12.4. Hemoglobin 7.8. Sodium 143. Potassium 4.6. Creatinine 0.6. Pro-calcitonin 0.06. Pro BNP 403. On 03/30/2020 patient seen in follow-up on the general medical surgical floor, patient is awake and alert, oriented 3, in no acute distress, still has loose productive cough, lung sounds positive for diffuse rhonchi throughout, patient at times clears small amounts of whitish colored phlegm, no compressive chest pain, no hemoptysis, he is on 3 L of oxygen pulse ox is 98%, his been afebrile. He has been ruled out for Covid 19 related pneumonia. He is on Zosyn for antibiotic coverage, nebulized bronchodilators, and oral steroids. On 03/31/2020 patient seen in follow-up on general medical oncology floor, he is awake and alert, eating comfortably, he sitting up on antibiotics, he sat 99% on 3 L of oxygen, hemodynamically he is stable, today's chest x-ray shows stable bilateral lower lobe infiltrates with pleural effusion, patient has had no fever or chills, his sputum is showing gram-negative bacilli, follow cultures are pending. He remains on Zosyn for empiric antibody coverage, he is on oral prednisone, and nebulized bronchodilators. He had a swallow evaluation today which showed no penetration or aspiration. Patient had a EGD today, which showed some gastritis, he had a normal brown bowel movement yesterday, today he denies any abdominal pain nausea vomiting, is tolerating regular diet. On 04/01/2020 patient seen in follow-up on the general medical surgical oncology floor, no acute events overnight, breathing comfortably, no cough, no chest pain, she is on 3 L of oxygen pulse ox of 92%, no fever chills, hemodynamically stable, denies any fever or chills, microbiology results reviewed showing gram- negative bacilli in sputum, final cultures pending. Remains on Zosyn for antibiotic coverage. On 04/02/2020 patient seen in follow-up on medical oncology floor, has been stable from pulmonary suspected, he is at his baseline, lung sounds are clear, as a 3 L of oxygen pulse ox of 96%, hemodynamically stable, he's had no recurrence of GI bleeding, his sputum culture was positive for Achromobacter xylos, patient is currently on Zosyn to which the organism is sensitive to, he has had no fever or chills, ID service is following and managing the antibiotics, no cough, no congestion, breathing comfortably, Objective - Vital Signs Vital signs: Vital Signs Temp 98.6 F 04/02/20 12:36 Pulse 79 04/02/20 12:51 Resp 16 04/02/20 12:51 BP 167/87 04/02/20 12:36 Pulse Ox 96 04/02/20 12:36 Intake & Output 04/01/20 04/02/20 04/02/20 18:59 06:59 18:59 Intake Total 125 510 Output Total 1050 Balance 125 -540 Weight 85.275 kg Intake: Intake, IV Titration 125 160 Amount Piperacillin-Tazobactam 3 100 .375 gm In Sodium Chloride 0.9% 100 ml @ 25 mls/hr IVPB Q8HR [facility] Rx# :[id number] Sodium Chloride 0.9% 1, 60 000 ml @ 20 mls/hr IV . Q24H [facility] Rx#:[id number] Sodium Ferric Gluconat- 125 Sucrose 125 mg In Sodium Chloride 0.9% 100 ml @ 100 mls/hr IVPB DAILY [facility] Rx#:[id number] Oral 350 Output: Urine 1050 Other: Voiding Method Urinal Urinal Urinal # Voids 5 # Bowel Movements 0 - Exam GENERAL EXAM: Alert, very pleasant, 80-year-old white male 3 L of oxygen pulse ox 92% comfortable in no apparent distress. HEAD: Normocephalic/atraumatic. EYES: Normal reaction of pupils, equal size. Conjunctiva pink, sclera white. NOSE: Clear with pink turbinates. THROAT: No erythema or exudates. NECK: No masses, no JVD, no thyroid enlargement, no adenopathy. CHEST: No chest wall deformity. Symmetrical expansion. LUNGS: Equal air entry with diffuse rhonchi throughout CVS: Regular rate and rhythm, normal S1 and S2, no gallops, no murmurs, no rubs ABDOMEN: Soft, nontender. No hepatosplenomegaly, normal bowel sounds, no guarding or rigidity. EXTREMITIES: No clubbing, no edema, no cyanosis, 2+ pulses and upper and lower extremities. MUSCULOSKELETAL: Muscle strength and tone normal. SPINE: No scoliosis or deformity SKIN: No rashes CENTRAL NERVOUS SYSTEM: Alert and oriented -3. No focal deficits, tone is normal in all 4 extremities. PSYCHIATRIC: Alert and oriented -3. Appropriate affect. Intact judgment and insight. - Labs CBC & Chem 7: 04/01/20 11:58 03/31/20 04:42 Labs: Microbiology - Last 24 Hours (Table) 03/30/20 00:10 Gram Stain - Final Sputum Sputum Culture - Final Achromobacter xylos SS denit Catie albicans 03/28/20 13:21 Blood Culture - Preliminary Blood No Growth after 96 hours Assessment and Plan Plan: Assessment: 1 Acute on chronic hypoxic respiratory failure secondary to an acute suspected lower lobe community-acquired pneumonia, CoVID screen negative. Sputum culture is positive for Achromobacter xylos SS denit 2 Recent bronchoscopy on 02/20/2020 positive for Aspergillus fumigatus, Stenotrophomonas maltophilia, gram-negative bacilli. 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 6 History of smoking approximate 45 years at 1-2 packs per day however quit many years ago. 7 Atrial fibrillation, anticoagulated with Eliquis 8 History of previous CVA/TIA 9 History of gastric ulcer 10 Hyperlipidemia 11 Anxiety 12 Melanotic stools with positive Hemoccult Plan: Antibiotics per ID service recommendations, clinically patient is stable, breathing comfortably, no cough or congestion, no fever or chills, no recurrence of GI bleeding, abdominal pain, from pulmonary perspective patient can be considered for discharge home on antibiotics per Dr. Conti recommendations. He will need outpatient follow-up with Dr. Conti in the office in 7-10 days. I performed a history & physical examination of the patient and discussed their management with my nurse practitioner, Angella Schneider. I reviewed the nurse practitioner's note and agree with the documented findings and plan of care. Lung sounds are positive for diminished breath sounds, with diffuse rhonchi The findings and the impression was discussed with the patient. I attest to the documentation by the nurse practitioner. Time with Patient: Less than 30
--- NOTE | 2020-04-02 16:58 | PN ---
PROGRESS NOTE DATE OF SERVICE: 04/02/2020 REASON FOR FOLLOWUP: Gram-negative pneumonia. INTERVAL HISTORY: Patient is currently afebrile. The patient is breathing more comfortably. The patient denies having any chest pain. He did have a cough, not bringing up any sputum. No nausea, no vomiting. No abdominal pain, no diarrhea. PHYSICAL EXAMINATION: Blood pressure is 137/87, pulse of 90, temperature 98.6. He is 96% on 3 L nasal cannula. General description is an elderly male, lying in bed in no distress. RESPIRATORY SYSTEM: Unlabored breathing, clear to auscultation anteriorly. HEART S1, S2. Regular rate and rhythm. ABDOMEN: Soft, no tenderness. LABS: Hemoglobin 8.1, white count 10.8. Sputum has been finalized with Achromobacter which is multidrug resistant pathogen. DIAGNOSTIC IMPRESSION AND PLAN: Patient with Gram-negative pneumonia with Achromobacter. Patient clinically responding to Zosyn. Recommend getting a PICC line/midline and continue with Zosyn for another 10 days. MMODL / IJN: [id number] /
[2020-04-02] MEDS: ATORVASTATIN 40 MG TAB PO SCH (20:29)
[2020-04-02] MEDS: SODIUM CHLORIDE 0.9% 1,000 ML IV SCH (20:30)
--- NOTE | 2020-04-02 21:24 | PN ---
PROGRESS NOTE DATE OF SERVICE: 04/02/2020 This 80-year-old gentleman who was admitted with COPD acute exacerbation, acute bilateral pneumonia is being closely monitored. Dr. Blake has recommended a midline and IV antibiotics which is being arranged at this time. The sputum culture showed Acinetobacter Xylos and Catie albicans. Dr. Blake is following the patient closely. Past medical history reviewed. REVIEW OF SYSTEMS: Cardiovascular: No angina or palpitations. Respiratory: As mentioned earlier. GI as mentioned earlier. : No dysuria. NERVOUS SYSTEM: No numbness or weakness. CURRENT MEDICATIONS: Reviewed and include: 1. [place]. 2. DuoNeb. 3. Xanax. 4. Lipitor. 5. Symbicort. 6. Iron sulfate. 7. Guaifenesin. 8. Protonix. 9. Zosyn. PHYSICAL EXAMINATION: Patient is alert, oriented x3. Pulse is 101. Blood pressure 103/72, respiration 20, temperature 98.4, pulse ox 94% on 2 L. HEENT: Conjunctivae normal. NECK: No JVD. CARDIOVASCULAR: S1, S2 muffled. RESPIRATORY SYSTEM: Breath sounds diminished at the bases. Scattered rhonchi and crackles. ABDOMEN: Soft, nontender. LEGS are no edema. No swelling. NERVOUS SYSTEM: No focal deficits. LABS: WBC 10.8, hemoglobin is 8.2. ASSESSMENT: 1. Chronic obstructive pulmonary disease, acute exacerbation with acute bilateral pneumonia, right more the left with possibly gram-negative pneumonia with Acinetobacter Xyloses and as well as Catie albicans with possible sepsis and acute hypoxic respiratory failure present on admission. 2. COVID-19 ruled out. 3. Stenotrophomonas maltophilia, from the recent bronchoscopy. 4. Melena and gastrointestinal bleed for evaluation. No active bleeding currently. 5. Increased WBC. 6. Anemia, normocytic. 7. Chronic hypoxic respiratory failure on home O2. 8. History of atrial fibrillation, chronic. 9. History of cerebrovascular accident, transient ischemic attack. 10.History of gastroesophageal reflux disease. 11.Hyperlipidemia. 12.History of lung cancer x2. Non-small cell squamous cell cancer. 13.History of bilateral cataracts. 14.History of colonoscopy. 15.History of anxiety. 16.Remote history of nicotine dependence. RECOMMENDATIONS AND DISCUSSION: Recommend to continue current medications, management and symptomatic treatment. Otherwise, at this time, I recommend continue with broad-spectrum IV antibiotics. Continue with PICC line, midline and closely follow with Dr. Blake. Guarded prognosis because of multiple complex medical issues. Further recommendations to follow. MMODL / IJN: [id number] / MIN
[2020-04-02] MEDS: ALPRAZolam 0.25 MG TAB PO PRN (23:00)
[2020-04-03] MEDS: SODIUM CHLORIDE 0.9% 1,000 ML IV SCH (04:58)
[2020-04-03] MEDS: IPRATROPIUM-ALBUTEROL 3 ML NEB INHALATION SCH ×3 (07:13→14:50)
[2020-04-03] MEDS: SYMBICORT 160-4.5 MCG INHALER INHALATION SCH (07:14)
[2020-04-03] MEDS: PANTOPRAZOLE 40 MG TABLET PO SCH (09:22)
[2020-04-03] MEDS: VENLAFAXINE HCL ER 150 MG CAP PO SCH (09:22)
[2020-04-03] MEDS: SOTALOL 120 MG TAB PO SCH (09:22)
[2020-04-03] MEDS: CYANOCOBALAMIN 500 MCG TAB PO SCH (09:22)
[2020-04-03] MEDS: PIPERACILLIN-TAZOBACTAM 3.375 GM in SODIUM CHLORIDE 0.9% 100 ML IVPB SCH ×2 (09:22→15:48)
[2020-04-03] MEDS: CHOLECALCIFEROL 1,000 UNIT TAB PO SCH (09:23)
[2020-04-03] MEDS: guaiFENesin-DM 600/30MG 1 EACH TAB.ER.12H PO SCH (09:23)
[2020-04-03] MEDS: predniSONE 10 MG TAB PO SCH (09:23)
[2020-04-03] MEDS: FERROUS SULFATE 325 MG TAB PO SCH (09:23)
--- NOTE | 2020-04-03 14:30 | P.PN ---
Subjective Progress Note Date: 04/03/20 Principal diagnosis: Acute on chronic hypoxic respiratory failure related to suspected bilateral lower lobe community acquired pneumonia coated ruled out This is a pleasant 80-year-old gentleman who follows with Dr. Toledo as his primary care provider. 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 He follows with Dr. Conti in our office. He is maintained on Breo, albuterol, DuoNeb inhalations. He had recently undergone bronchoscopy with BAL on 02/20/2020 and was found to have Aspergillus, gram-negative bacilli and stenotrophomonas in the broad cultures. He is currently on Bactrim. He was to be seen by infectious disease. He presented to [facility] on 03/27/2020 with complaints of increasing shortness of breath. He was also found to have melenic stools and heme positive with evidence of GI bleed and was transferred here for further care. He is seen today in consultation on the regular medical floor. He is currently resting quite comfortably in bed. Awake and alert in no acute distress. Computed tomography scan of the chest reveals patchy infiltrates and atelectasis at the lung bases secondary to suspected pneumonia. Coronavirus not detected. White count 12.4. Hemoglobin 7.8. Sodium 143. Potassium 4.6. Creatinine 0.6. Pro-calcitonin 0.06. Pro BNP 403. On 03/30/2020 patient seen in follow-up on the general medical surgical floor, patient is awake and alert, oriented 3, in no acute distress, still has loose productive cough, lung sounds positive for diffuse rhonchi throughout, patient at times clears small amounts of whitish colored phlegm, no compressive chest pain, no hemoptysis, he is on 3 L of oxygen pulse ox is 98%, his been afebrile. He has been ruled out for Covid 19 related pneumonia. He is on Zosyn for antibiotic coverage, nebulized bronchodilators, and oral steroids. On 03/31/2020 patient seen in follow-up on general medical oncology floor, he is awake and alert, eating comfortably, he sitting up on antibiotics, he sat 99% on 3 L of oxygen, hemodynamically he is stable, today's chest x-ray shows stable bilateral lower lobe infiltrates with pleural effusion, patient has had no fever or chills, his sputum is showing gram-negative bacilli, follow cultures are pending. He remains on Zosyn for empiric antibody coverage, he is on oral prednisone, and nebulized bronchodilators. He had a swallow evaluation today which showed no penetration or aspiration. Patient had a EGD today, which showed some gastritis, he had a normal brown bowel movement yesterday, today he denies any abdominal pain nausea vomiting, is tolerating regular diet. On 04/01/2020 patient seen in follow-up on the general medical surgical oncology floor, no acute events overnight, breathing comfortably, no cough, no chest pain, she is on 3 L of oxygen pulse ox of 92%, no fever chills, hemodynamically stable, denies any fever or chills, microbiology results reviewed showing gram- negative bacilli in sputum, final cultures pending. Remains on Zosyn for antibiotic coverage. On 04/02/2020 patient seen in follow-up on medical oncology floor, has been stable from pulmonary suspected, he is at his baseline, lung sounds are clear, as a 3 L of oxygen pulse ox of 96%, hemodynamically stable, he's had no recurrence of GI bleeding, his sputum culture was positive for Achromobacter xylos, patient is currently on Zosyn to which the organism is sensitive to, he has had no fever or chills, ID service is following and managing the antibiotics, no cough, no congestion, breathing comfortably, On 04/03/2020 patient seen in follow-up on general medical floor, he is calm and comfortable, sitting up on edge of bed, denies any acute distress, on 2 L of ox ygen pulse ox is 94-95%, hemodynamically he has been stable, his lung sounds are clear, no worsening dyspnea, his breathing is close to his baseline. Sputum culture was positive for Acromobacter, and patient has been on Zosyn to which he is responding and ID service has recommended a PICC line placement and normal Zosyn infusions for another 10 days. This had no fever or chills, no chest pain, his had no evidence of bleeding, today's hemoglobin is 8.2. Objective - Vital Signs Vital signs: Vital Signs Temp 97.6 F 04/03/20 04:31 Pulse 82 04/03/20 11:01 Resp 20 04/03/20 04:31 BP 162/84 04/03/20 04:31 Pulse Ox 95 04/03/20 04:31 Intake & Output 04/02/20 04/03/20 04/03/20 18:59 06:59 18:59 Intake Total 200 700 Output Total 650 Balance 200 50 Weight 85.275 kg Intake: Intake, IV Titration 200 200 Amount Piperacillin-Tazobactam 3 100 100 .375 gm In Sodium Chloride 0.9% 100 ml @ 25 mls/hr IVPB Q8HR [facility] Rx# :[id number] Sodium Chloride 0.9% 1, 100 000 ml @ 20 mls/hr IV . Q24H [facility] Rx#:[id number] Sodium Ferric Gluconat- 100 Sucrose 125 mg In Sodium Chloride 0.9% 100 ml @ 100 mls/hr IVPB DAILY [facility] Rx#:[id number] Oral 500 Output: Urine 650 Other: Voiding Method Urinal Urinal Urinal # Voids 1 # Bowel Movements 0 - Exam GENERAL EXAM: Alert, very pleasant, 80-year-old white male 3 L of oxygen pulse ox 92% comfortable in no apparent distress. HEAD: Normocephalic/atraumatic. EYES: Normal reaction of pupils, equal size. Conjunctiva pink, sclera white. NOSE: Clear with pink turbinates. THROAT: No erythema or exudates. NECK: No masses, no JVD, no thyroid enlargement, no adenopathy. CHEST: No chest wall deformity. Symmetrical expansion. LUNGS: Equal air entry with diffuse rhonchi throughout CVS: Regular rate and rhythm, normal S1 and S2, no gallops, no murmurs, no rubs ABDOMEN: Soft, nontender. No hepatosplenomegaly, normal bowel sounds, no guarding or rigidity. EXTREMITIES: No clubbing, no edema, no cyanosis, 2+ pulses and upper and lower extremities. MUSCULOSKELETAL: Muscle strength and tone normal. SPINE: No scoliosis or deformity SKIN: No rashes CENTRAL NERVOUS SYSTEM: Alert and oriented -3. No focal deficits, tone is normal in all 4 extremities. PSYCHIATRIC: Alert and oriented -3. Appropriate affect. Intact judgment and insight. - Labs CBC & Chem 7: 04/01/20 11:58 03/31/20 04:42 Labs: Microbiology - Last 24 Hours (Table) 11/07/20 13:21 Blood Culture - Preliminary Blood No Growth after 120 hours 03/30/20 00:10 Gram Stain - Final Sputum Sputum Culture - Final Achromobacter xylos SS denit Catie albicans Assessment and Plan Plan: Assessment: 1 Acute on chronic hypoxic respiratory failure secondary to an acute suspected lower lobe community-acquired pneumonia, CoVID screen negative. Sputum culture is positive for Achromobacter xylos SS denit 2 Recent bronchoscopy on 02/20/2020 positive for Aspergillus fumigatus, St enotrophomonas maltophilia, gram-negative bacilli. 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 6 History of smoking approximate 45 years at 1-2 packs per day however quit many years ago. 7 Atrial fibrillation, anticoagulated with Eliquis 8 History of previous CVA/TIA 9 History of gastric ulcer 10 Hyperlipidemia 11 Anxiety 12 Melanotic stools with positive Hemoccult Plan: Patient is doing well, afebrile, continues on Zosyn, ID service recommendations were noted, patient go home on another 10 days of Zosyn infusions. From pulmonary perspective he has been stable, afebrile fever or chills, no worsening dyspnea or cough. For discharge from pulmonary perspective I performed a history & physical examination of the patient and discussed their management with my nurse practitioner, Angella Schneider. I reviewed the nurse practitioner's note and agree with the documented findings and plan of care. Lung sounds are positive for diminished breath sounds, with diffuse rhonchi The findings and the impression was discussed with the patient. I attest to the documentation by the nurse practitioner. Time with Patient: Less than 30
[2020-04-03 15:02] VITALS: BP 157/74; RESP 18; TEMP 97.4
[2020-04-03 15:03] VITALS: PULSE 73
--- NOTE | 2020-04-03 17:51 | PN ---
PROGRESS NOTE DATE OF SERVICE: 04/03/2020 REASON FOR FOLLOWUP: Gram-negative pneumonia. INTERVAL HISTORY: Patient is currently afebrile. Patient is breathing comfortably. Denies any chest pain. Continues to have a cough, but no sputum. No abdominal pain or diarrhea. PHYSICAL EXAMINATION: Blood pressure 157/74 with a pulse of 81, temperature 97.4. He is 98% on 2 L nasal cannula. General description is an elderly male lying in bed in no distress. Respiratory system: Unlabored breathing. Some coarse breath sounds in the base. No wheeze. HEART: S1, S2. Regular rate and rhythm. Abdomen soft, no tenderness. LABS: Hemoglobin 8.1, white count 10.8. Sputum is Achromobacter with multi-drug resistant pattern. DIAGNOSTIC IMPRESSION AND PLAN: Patient with Achromobacter pneumonia clinically responded to Zosyn to continue for another 10 days where the mid line has been placed. Continue close outpatient followup. MMODL / IJN: [id number] /
--- NOTE | 2020-04-04 09:37 | P.DS ---
Providers Date of admission: 03/28/20 12:15 Expected date of discharge: 04/03/20 Attending physician: Benita Dempsey Consults: 03/28/20 12:15 Consult Physician Routine Consulting Provider: Liang Alcala Consult Reason/Comments: Pneumonia COPD history of lung cancer Do you want consulting provider notified?: Yes 03/29/20 10:31 Consult Physician Routine Consulting Provider: Peter Blake Consult Reason/Comments: pneumonia Do you want consulting provider notified?: Yes Primary care physician: [facility] Course: Acute on chronic hypoxic respiratory failure related to suspected bilateral lower lobe community acquired pneumonia coated ruled out This is a pleasant 80-year-old gentleman who follows with Dr. Toledo as his primary care provider. 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 He follows with Dr. Conti in our office. He is maintained on Breo, albuterol, DuoNeb inhalations. He had recently undergone bronchoscopy with BAL on 02/20/2020 and was found to have Aspergillus, gram-negative bacilli and stenotrophomonas in the broad cultures. He is currently on Bactrim. He was to be seen by infectious disease. He presented to [facility] on 03/27/2020 with complaints of increasing shortness of breath. He was also found to have melenic stools and heme positive with evidence of GI bleed and was transferred here for further care. He is seen today in consultation on the regular medical floor. He is currently resting quite comfortably in bed. Awake and alert in no acute distress. Computed tomography scan of the chest reveals patchy infiltrates and atelectasis at the lung bases secondary to suspected pneumonia. Coronavirus not detected. White count 12.4. Hemoglobin 7.8. Sodium 143. Potassium 4.6. Creatinine 0.6. Pro-calcitonin 0.06. Pro BNP 403. On 03/30/2020 patient seen in follow-up on the general medical surgical floor, patient is awake and alert, oriented 3, in no acute distress, still has loose productive cough, lung sounds positive for diffuse rhonchi throughout, patient at times clears small amounts of whitish colored phlegm, no compressive chest pain, no hemoptysis, he is on 3 L of oxygen pulse ox is 98%, his been afebrile. He has been ruled out for Covid 19 related pneumonia. He is on Zosyn for antibiotic coverage, nebulized bronchodilators, and oral steroids. On 03/31/2020 patient seen in follow-up on general medical oncology floor, he is awake and alert, eating comfortably, he sitting up on antibiotics, he sat 99% on 3 L of oxygen, hemodynamically he is stable, today's chest x-ray shows stable bilateral lower lobe infiltrates with pleural effusion, patient has had no fever or chills, his sputum is showing gram-negative bacilli, follow cultures are pending. He remains on Zosyn for empiric antibody coverage, he is on oral prednisone, and nebulized bronchodilators. He had a swallow evaluation today which showed no penetration or aspiration. Patient had a EGD today, which showed some gastritis, he had a normal brown bowel movement yesterday, today he denies any abdominal pain nausea vomiting, is tolerating regular diet. On 04/01/2020 patient seen in follow-up on the general medical surgical oncology floor, no acute events overnight, breathing comfortably, no cough, no chest pain, she is on 3 L of oxygen pulse ox of 92%, no fever chills, hemodynamically stable, denies any fever or chills, microbiology results reviewed showing gram- negative bacilli in sputum, final cultures pending. Remains on Zosyn for antibiotic coverage. On 04/02/2020 patient seen in follow-up on medical oncology floor, has been stable from pulmonary suspected, he is at his baseline, lung sounds are clear, as a 3 L of oxygen pulse ox of 96%, hemodynamically stable, he's had no recurrence of GI bleeding, his sputum culture was positive for Achromobacter xylos, patient is currently on Zosyn to which the organism is sensitive to, he has had no fever or chills, ID service is following and managing the antibiotics, no cough, no congestion, breathing comfortably, On 04/03/2020 patient seen in follow-up on general medical floor, he is calm and comfortable, sitting up on edge of bed, denies any acute distress, on 2 L of oxygen pulse ox is 94-95%, hemodynamically he has been stable, his lung sounds are clear, no worsening dyspnea, his breathing is close to his baseline. Sputum culture was positive for Acromobacter, and patient has been on Zosyn to which he is responding and ID service has recommended a PICC line placement and normal Zosyn infusions for another 10 days. This had no fever or chills, no chest pa in, his had no evidence of bleeding, today's hemoglobin is 8.2. ID is recommended to continue IV Zosyn for 10 days postdischarge; patient was discharged home in a stable condition with home care for IV infusion Patient Condition at Discharge: Fair Plan - Discharge Summary Discharge Rx Participant: No New Discharge Prescriptions: New Fluconazole [Diflucan] 100 mg PO DAILY #7 tablet Piperacillin Sodium/Tazobactam [Zosyn] 4.5 gm IVPB Q8HR #30 bag Continue predniSONE 5 mg PO DAILY guaiFENesin-DM 600/30MG [Mucinex Dm] 1 tab PO BID Ferrous Sulfate [Iron (65 MG Elemental)] 325 mg PO DAILY Atorvastatin [Lipitor] 40 mg PO HS Apixaban [Eliquis] 2.5 mg PO BID ALPRAZolam [Xanax] 0.25 mg PO HS PRN PRN Reason: Anxiety Venlafaxine HCl [Effexor XR] 150 mg PO DAILY Pantoprazole Sodium 40 mg PO BID Fluticasone/Vilanterol [Breo Ellipta 200-25 Mcg INH] 1 inhalation INHALATION RT-DAILY Cyanocobalamin (Vitamin B-12) [Vitamin B-12] 2,500 mcg PO DAILY Cholecalciferol [Vitamin D3 (25 Mcg = 1000 Iu)] 1,000 unit PO DAILY Sotalol HCl [Sotalol AF] 120 mg PO BID Changed Ipratropium Nebulized [Atrovent Nebulized 0.2 MG/ML] 0.5 mg INHALATION RT-Q6H #120 Discharge Medication List ALPRAZolam [Xanax] 0.25 mg PO HS PRN 01/08/20 [History] Apixaban [Eliquis] 2.5 mg PO BID 01/08/20 [History] Atorvastatin [Lipitor] 40 mg PO HS 01/08/20 [History] Cyanocobalamin (Vitamin B-12) [Vitamin B-12] 2,500 mcg PO DAILY 01/08/20 [History] Ferrous Sulfate [Iron (65 MG Elemental)] 325 mg PO DAILY 01/08/20 [History] Fluticasone/Vilanterol [Breo Ellipta 200-25 Mcg INH] 1 inhalation INHALATION RT- DAILY 01/08/20 [History] Pantoprazole Sodium 40 mg PO BID 01/08/20 [History] Venlafaxine HCl [Effexor XR] 150 mg PO DAILY 01/08/20 [History] guaiFENesin-DM 600/30MG [Mucinex Dm] 1 tab PO BID 01/08/20 [History] predniSONE 5 mg PO DAILY 01/08/20 [History] Cholecalciferol [Vitamin D3 (25 Mcg = 1000 Iu)] 1,000 unit PO DAILY 03/28/20 [History] Sotalol HCl [Sotalol AF] 120 mg PO BID 03/28/20 [History] Fluconazole [Diflucan] 100 mg PO DAILY #7 tablet 04/02/20 [Rx] Ipratropium Nebulized [Atrovent Nebulized 0.2 MG/ML] 0.5 mg INHALATION RT-Q6H #120 04/02/20 [Rx] Piperacillin Sodium/Tazobactam [Zosyn] 4.5 gm IVPB Q8HR #30 bag 04/02/20 [Rx] Follow up Appointment(s)/Referral(s): Reymundo Toledo MD [Primary Care Provider] - 04/06/20 2:00 pm Wili Conti DO [Doctor of Osteopathic Medicine] - 04/22/20 3:30 pm [facility], [NON-STAFF] - 1 Week MID,Infusion [NON-STAFF] - 1 Week Ambulatory/Diagnostic Orders: Complete Blood Count w/diff [LAB.AMB] Location: None Selected Patient Instructions/Handouts: Fluconazole (By mouth), Iron Rich Diet (DC), COPD (Chronic Obstructive Pulmonary Disease) (DC) Activity/Diet/Wound Care/Special Instructions: Heart Healthy diet Activity Limited til follow-up Per Speech Therapy: patient would benefit from follow-up teaching and swallow exercises if swallow problems continue. Discharge Disposition: HOME WITH HOME HEALTH SERVICES
--- NOTE | 2020-04-06 12:07 | CDI ---
Documentation Clarification Form Date: 04/06/2020 11:55:00 AM From: Amie Rueda Phone: If you have a question about this query, please contact Mayra Julian, [employer] at [phone] between 8am and 5pm. Admit Date: 03/28/2020 12:15:00 PM Patient Name: Kristian Basurto Visit Number: [id number] Discharge Date: 04/03/2020 04:50:00 PM ATTENTION: The Clinical Documentation Specialists (CDI) and [facility] Coding Staff appreciate your assistance in clarifying documentation. Please respond to the clarification below the line at the bottom and electronically sign. The CDI & [facility] Coding staff will review the response and follow-up if needed. Please note: Queries are made part of the Legal Health Record. If you have any questions, please contact the author of this message via ITS. Dr. Jorge Diaz The patient presented with acute bilateral gm. negative pneumonia R/O Covid. Dr. Alegria's 04/02 PN documents gram negative pneumoni and sepsis. Diagnosis of sepsis not carried to [facility]. Please clarify if patient had sepsis or was sepsis ruled out. History/Risk Factors: gram negative pneumonia Clinical Indicators: WBC 20.5 Lactic acid: wnl Vitals signs on admission: 98 F, 103 - 111 bpm, 20, 153/84, 99% Treatment: Zosyn IV and to continue Zosyn after discharge PICC line Antibiotics: IV Zosyn Other: In your professional opinion, please clarify if these findings signify one of the following conditions, whether the condition is POA, and cause, if known: Condition Sepsis ruled out SIRS, without underlying infectious process Sepsis Severe Sepsis Septic Shock Other, please specify Unable to determine SIRS Criteria (2 or more of the following may indicate SIRS): -Temperature < 96.8F (36C) or > 101.0F (38.3C) -Heart Rate > 90 bpm -Respiratory Rate > 20 breaths/min or PaCO2 < 32 mmHg -White Blood Cell Count > 12,000 or < 4,000 cells/mm3 or > 10% bands -Lactate >2.0 mmol/L (>4.0 is equivalent to septic shock) Sepsis MTDD
== END 2020-04-03 16:50 | disposition home health service (06) | DRG 871 ==
LOC: EC 10:42 → 6NMEDSUR 12:15
PROVIDERS: ADMIT Internal Medicine; ATTEND Internal Medicine
PROC: 0DB78ZX Excision of Stomach, Pylorus, Via Natural or Artificial Opening Endoscopic, Diagnostic (ICD-10-PCS; 2020-03-30)
PROC: 0DB98ZX Excision of Duodenum, Via Natural or Artificial Opening Endoscopic, Diagnostic (ICD-10-PCS; principal; 2020-03-30 07:30)
PROC: 05HC33Z Insertion of Infusion Device into Left Basilic Vein, Percutaneous Approach (ICD-10-PCS; 2020-04-03)
DX: A41.50 Gram-negative sepsis, unspecified (principal); J15.6 Pneumonia due to other Gram-negative bacteria; J96.21 Acute and chronic respiratory failure with hypoxia; J44.0 Chronic obstructive pulmonary disease with (acute) lower respiratory infection; J44.1 Chronic obstructive pulmonary disease with (acute) exacerbation; K92.1 Melena; I48.20 Chronic atrial fibrillation, unspecified; J84.9 Interstitial pulmonary disease, unspecified; J90 Pleural effusion, not elsewhere classified; J98.11 Atelectasis; Z20.828 Contact with and (suspected) exposure to other viral communicable diseases; D50.9 Iron deficiency anemia, unspecified; E11.9 Type 2 diabetes mellitus without complications; E78.5 Hyperlipidemia, unspecified; F41.9 Anxiety disorder, unspecified; K21.9 Gastro-esophageal reflux disease without esophagitis; K29.70 Gastritis, unspecified, without bleeding; Z87.891 Personal history of nicotine dependence; Z92.21 Personal history of antineoplastic chemotherapy; Z92.3 Personal history of irradiation; Z85.118 Personal history of other malignant neoplasm of bronchus and lung; Z86.19 Personal history of other infectious and parasitic diseases; Z79.01 Long term (current) use of anticoagulants; Z79.899 Other long term (current) drug therapy; Z82.49 Family history of ischemic heart disease and other diseases of the circulatory system; Z86.73 Personal history of transient ischemic attack (TIA), and cerebral infarction without residual deficits; Z87.11 Personal history of peptic ulcer disease; Z90.2 Acquired absence of lung [part of]; Z80.9 Family history of malignant neoplasm, unspecified; Z98.42 Cataract extraction status, left eye; Z98.41 Cataract extraction status, right eye; Z96.1 Presence of intraocular lens; Z79.52 Long term (current) use of systemic steroids
CPT/HCPCS: 36410; 43239; 71045; 71250; 74230; 76937; 80048; 82728; 83540; 83550; 83615; 83880; 84145; 84466; 85025; 85027; 85379; 86140; 86850; 86900; 86901; 87040; 87070; 87077; 87186; 87205; 87635; 88305; 94640; 96365; 96366; 99285